=== PATIENT | female | born 1980 | race Caucasian/White ===

== ENCOUNTER 2022-06-21 13:28 | Observation (INO) | payer OTHER, SELFPAY ==
[2022-06-21] VITALS (29 sets, daily range): BP systolic 115–149; BP diastolic 67–89; PULSE 73–112; RESP 11–20; TEMP 36.3–37.4; O2SAT 98–100
--- NOTE | ~2022-06-21 | XR_ITS ---
XR chest 2V DATE: 06/21/2022 14:58 INDICATION: Chest pain TECHNIQUE: PA and lateral views COMPARISON: None FINDINGS: Normal heart size. No hilar or mediastinal enlargement. No pulmonary infiltrate or consolid ation, pleural effusion or pulmonary vascular congestion or pneumothorax. Included skeletal structure s are unremarkable. IMPRESSION: No active cardiopulmonary disease Reviewed, dictated and finalized at location B.
--- NOTE | 2022-06-21 13:30 | ECG_ITS ---
Measurements Intervals [place] Rate: 88 P: 51 WI: 130 QRS: 59 QRSD: 84 T: 35 QT: 353 QTc: 427 Interpretive Statements SINUS RHYTHM BORDERLINE ST ABNORMALITY- ANTEROLAT/INF LEADS BORDERLINE ECG NO PREVIOUS ECG AVAILABLE FOR COMPARISON Electronically Signed On 06-21-2022 14:04:47 CDT by Abraham Hart D.O.
[2022-06-21 13:55] LABS: Basophils Absolute Auto 0.1 K/mm3 (0.0-0.1); Basophils Percent Auto 1.7 % (0.2-1.2); Eosinophils Absolute Auto 0.1 K/mm3 (0-0.3); Eosinophils Percent Auto 2.4 % (0-4.4); Hematocrit 25.1 % (37.0-47.0); Immature Granulocyte Absolute 0.01 K/mm3 (0.00-0.031); Immature Granulocyte Percent A 0.2 % (0-0.5); Lymphocytes Absolute Auto 1.97 K/mm3 (0.9-3.2); Lymphocytes Percent Auto 34.3 % (18.3-44.2); Mean Corpuscular HGB Conc 26.7 g/dl (32-36); Mean Corpuscular Hemoglobin 17.3 pg (26-34); Mean Corpuscular Volume 64.7 fl (80-100); Mean Platelet Volume 9.8 fl (7.4-10.4); Monocytes Absolute Auto 0.6 K/mm3 (0.1-0.6); Monocytes Percent Auto 11.1 % (2.6-8.5); Neutrophils Absolute Auto 2.9 K/mm3 (1.3-6.7); Neutrophils Percent Auto 50.3 % (45.5-73.1); Platelet Count Result 461 k/mm3 (150-375); Red Blood Count 3.88 M/mm3 (4.2-5.4); Red Cell Distribution Width 20.9 % (11.5-14.5); White Blood Count 5.8 K/mm3 (4.5-10.0)
[2022-06-21 14:07] LABS: Alanine Aminotransferase 36 U/L (6-35); Albumin Level 4.5 g/dL (3.5-5.1); Alkaline Phosphatase 84 U/L (38-126); Anion Gap 12 mmol/L (8-16); Aspartate Amino Transferase 35 U/L (14-36); Bilirubin,Total 0.4 mg/dL (0.2-1.3); Blood Urea Nitrogen 8 mg/dL (7-17); Calcium 8.7 mg/dL (8.4-10.2); Carbon Dioxide 20 mmol/L (22-30); Chloride 102 mmol/L (98-107); Estimated CRCL calculation 126 ml/min; Estimated Glomerular Filt Rate > 60; Glucose 107 mg/dL (65-110); Lipase 137 U/L (23-300); Potassium 3.8 mmol/L (3.4-5.0); Sodium 134 mmol/L (137-145)
[2022-06-21 14:10] LABS: INR 1.1; Prothrombin Time 13.8 Seconds (11.1-14.7)
[2022-06-21 14:11] LABS: Partial Thromboplastin Time 26.3 SECONDS (22.3-36.8)
[2022-06-21 14:18] LABS: Troponin I < 0.012 ng/mL (0.000-0.034)
[2022-06-21 14:24] LABS: Hemoglobin 6.7 g/dL (12.0-15.0)
[2022-06-21 14:25] LABS: Platelet Estimate Increased (Adequate); Schistocytes None Seen (NORMAL)
[2022-06-21 14:26] LABS: Anisocytosis 3+ (NORMAL); Hypochromasia 1+ (NORMAL)
--- NOTE | 2022-06-21 14:42 | ED.GENADULT ---
HPI - General Adult General Chief complaint: Chest Pain Stated complaint: chest pain Time Seen by Provider: 06/21/22 14:27 History of Present Illness HPI narrative: 42-year-old female with history of heavy periods and intermittent chest pain presenting to the emergency department for evaluation of the chest pain. 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 Patient states he does have fairly heavy periods and just completed her menstrual cycle. Patient denies any current vaginal bleeding. Patient denies any history of GI bleed. Patient states she does have history anemia and has previously taken iron pills but has not been taking her iron supplement. Related Data Home Medications Medication Instructions Recorded Confirmed No Home Medications 06/21/22 06/21/22 Allergies Allergy/AdvReac Type Severity Reaction Status Date / Time No Known Allergies Allergy Mild Verified 06/21/22 14:21 Review of Systems Review of Systems: All systems reviewed & are unremarkable except as noted in HPI and below PMFSH Social History Social History Smoking packs per day: 0.5 Smoking cigarettes per day: 10.0 Years smoked: 4 Smoking pack-years: 2.00 Smoking status: Former smoker Tobacco type: cigarettes Second hand tobacco smoke exposure: Yes Additional smoking assessment comments: quit in 2016 Alcohol intake: never Substance use: never Lack of Transportation: No Lack of Food: Never True Current Housing: I Have Housing Concerned About Future Housing: No Difficulty Paying Gas/Electric Bills: No Difficulty Paying for Meds: No Currently Unemployed: No Education: High School Diploma/GED Difficulty w/ Childcare or Family Care: No Spiritual care concerns: No Exam Narrative: APPEARANCE: Well appearing, no pain, no distress, well-nourished. HEAD: normocephalic, atraumatic. EYES: PERRLA/EOMI, conjunctivae clear. NOSE: Normal no drainage NECK: Supple. No adenopathy, no masses. RESPIRATORY: Airway patent, respirations nonlabored. Clear to auscultation bilaterally, no rales, rhonchi, wheezing. CARDIOVASCULAR: Regular rate and rhythm without murmurs rubs or gallops. ABDOMINAL: Soft, nontender, nondistended, normal bowel sounds Rectal: No melena on exam. No bright red blood on digital rectal exam and patient was Hemoccult negative MUSCULOSKELETAL: Moves all extremities. Strength/ROM intact, No edema, No calf tenderness. NEURO: Alert. Cranial nerves II through XII intact. Grossly intact SKIN: Warm, dry. Normal Color Course Course Emergency Course: 42-year-old female with history of anemia and intermittent chest pain. Differential diagnosis does include ACS, pneumothorax, pneumonia, GI bleed, anemia secondary to vaginal bleeding. Patient was Hemoccult negative on the digital rectal exam. Patient is being treated with 2 units of packed red blood. Suspected etiology of the patient's symptoms anemia secondary to heavy menstrual cycle and noncompliance with iron supplements. Patient was updated on the results of her work-up and plan for admission. Case was discussed with the hospitalist and patient was accepted for admission. Patient was well-appearing at time of admission. X-ray showed no acute cardiopulmonary normality. EKG showed normal sinus rhythm with nonspecific ST changes. Vital Signs Vital signs: Vital Signs Temperature 98.5 F 06/21/22 13:38 Pulse Rate 88 06/21/22 13:38 Respiratory Rate 16 06/21/22 13:38 Blood Pressure 149/78 H 06/21/22 13:38 Pulse Oximetry 100 06/21/22 13:38 Oxygen Delivery Room Air 06/21/22 13:38 Temperature 97.6 F 06/21/22 19:55 Pulse Rate 98 06/21/22 19:55 Respiratory Rate 18 06/21/22 19:55 Blood Pressure 129/69 06/21/22 19:55 Pulse Oximetry 99 06/21/22 19:55 Oxygen Delivery R
[2022-06-21] MEDS: SODIUM CHLORIDE 0.9% IV 250 ML 30 ML IV CONT (16:26)
--- NOTE | 2022-06-21 17:00 | PM.IMHP ---
H&P: HPI History of Present Illness Date/Time: 06/21/22 17:00 Chief Complaint: Chest pain and rapid heart rate. Narrative: This is a pleasant 42-year-old female with history of iron deficiency anemia for which she is intermittently on supplementation who presented to the emergency department via private vehicle from home for evaluation of chest pain rapid heart rate. Patient provides the following history. Over last 6 months or so she has noticed that her exercise tolerance has decreased, she is easily fatigued, short of breath with day-to-day activities, and more recently she has started to have some lightheadedness and dizziness. For the past week or so she has been experiencing a discomfort in the left anterior chest, below the left breast, which she has difficult time describing. It lasts anywhere from seconds to 20 minutes and it is self-limiting. She occasionally has rapid heart rate at that time as well which she has documented on her Apple watch. These episodes tend to occur at nighttime and wake her from sleep on occasion. She call to establish care with a primary physician but does not have an appointment for several weeks and she decided to come in today for evaluation. Vital signs were stable on arrival. Labs were significant for a hemoglobin of 6.7, hematocrit 25.1%, MCV 64.7, platelet 461. Her stool was Hemoccult negative on rectal exam done in the ED. She admits to having heavy periods though that is usually only half a day and up to 2 days of her cycle. She typically did bleeds up to 6 days and has pretty consistent cycles. On heavier days she will go through an ultra tampon and pad every couple of hours and she does pass clots during those times. As she has gotten older she has had increasing discomfort with her menstrual cycles. She has not seen a electrician office for quite some time. She denies epistaxis, gingival bleeding, easy bruising, hematemesis, hemoptysis, hematuria, hematochezia, and melena. She denies epigastric and abdominal pain, bloating, and belching. She is being admitted in this setting for blood transfusion and close monitoring given reports of left-sided chest pain. Review of Systems Review of Systems: Twelve systems were reviewed and are negative except for as per HPI. [facility] Past Medical History Medical History (Updated 06/21/22 @ 23:26 by Jazmin Goss PA-C) Iron deficiency anemia Surgical History Surgical History (Updated 06/21/22 @ 23:24 by Jazmin Goss PA-C) History of tubal ligation Social History Social History (Updated 06/21/22 @ 23:25 by Jazmin Goss PA-C) Social History: Surrogate medical decision maker: Jose Borrego, significant other. Code status: Full code. Smoking packs per day: 0.5 Smoking cigarettes per day: 10.0 Years smoked: 4 Smoking pack-years: 2.00 Smoking status: Former smoker Tobacco type: cigarettes Second hand tobacco smoke exposure: Yes Additional smoking assessment comments: quit in 2016 Alcohol intake: never Substance use: never Lack of Transportation: No Lack of Food: Never True Current Housing: I Have Housing Concerned About Future Housing: No Difficulty Paying Gas/Electric Bills: No Difficulty Paying for Meds: No Currently Unemployed: No Education: High School Diploma/GED Difficulty w/ Childcare or Family Care: No Additional living arrangements comments: Lives in [place]. Has 4 children. 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 Spiritual care concerns: No Meds Home Medications and Allergies Home Medications Medication Instructions Recorded Confirmed Type No Home Medications 06/21/22 06/21/22 History Allergies Allergy/AdvReac Type Severity Reaction Status Date / Time No Known Allergies Allergy Mild Verified 06/21/22 14:21 Vital Signs Vital Signs - 24 hr 06/21/22 13:38 06/21/22 14:21 06/21/22 14:36 Temperature 98.5 F Pulse Rate 88 97 112 H Respi
[2022-06-21 17:19] LABS: Troponin I < 0.012 ng/mL (0.000-0.034)
[2022-06-21] MEDS: TUBING, BLOOD SET 1 EACH XX (17:40)
[2022-06-21 17:59] LABS: Immature Reticulocyte Fraction 24.1 % (3.0-15.9); Reticulocyte Hemoglobin Conten 17.2 pg (28.2-35.7); Reticulocyte Percent 1.56 % (0.7-4.3); Reticulocytes Absolute 0.06 B/L (32.2-175.7)
[2022-06-21 18:04] LABS: Transferrin 376 mg/dL (206-381)
[2022-06-21 18:27] LABS: Iron 12 ug/dL (37-170)
[2022-06-21 18:37] LABS: Percent Iron Saturation 2 % (20-50)
--- NOTE | 2022-06-21 18:41 | ADMGEN ---
This patient, Ariana Ku, was admitted to IMU Room 209-. Patient/family oriented to hospital policies and general routines including ID bracelet, bed and alarms, visiting hours, pain management, procedures, bathroom and other care routines, personal items, smoking policy, room service/diet, and visiting hours. Information on how to activate the Rapid Response Team has been discussed. Patient/Family are encouraged to report perceived risks to care and to ask questions if they do not understand what they are told or what they should do.
[2022-06-21 18:59] LABS: Thyroid Stimulating Hormone Reflex 0.883 uIU/mL (0.465-4.68)
[2022-06-21 19:04] LABS: Ferritin 3.62 ng/mL (6.24-137)
[2022-06-21 19:05] LABS: Folic Acid 14.5 ng/mL (2.76->20)
[2022-06-21 20:17] LABS: Troponin I < 0.012 ng/mL (0.000-0.034)
[2022-06-21 21:58] LABS: Hematocrit 29.5 % (37.0-47.0); Hemoglobin 8.9 g/dL (12.0-15.0)
[2022-06-22] VITALS (15 sets, daily range): BP systolic 100–136; BP diastolic 58–85; PULSE 63–98; RESP 16–20; TEMP 36.5–37.3; O2SAT 98–100
[2022-06-22 04:23] LABS: Hematocrit 31.8 % (37.0-47.0); Hemoglobin 9.3 g/dL (12.0-15.0); Mean Corpuscular HGB Conc 29.2 g/dl (32-36); Mean Corpuscular Hemoglobin 20.4 pg (26-34); Mean Corpuscular Volume 69.6 fl (80-100); Mean Platelet Volume 9.9 fl (7.4-10.4); Platelet Count Result 419 k/mm3 (150-375); Red Blood Count 4.57 M/mm3 (4.2-5.4); Red Cell Distribution Width 24.5 % (11.5-14.5); White Blood Count 6.2 K/mm3 (4.5-10.0)
[2022-06-22 04:39] LABS: Anion Gap 8 mmol/L (8-16); Blood Urea Nitrogen 10 mg/dL (7-17); Calcium 8.5 mg/dL (8.4-10.2); Carbon Dioxide 24 mmol/L (22-30); Chloride 105 mmol/L (98-107); Estimated CRCL calculation 107 ml/min; Estimated Glomerular Filt Rate > 60; Glucose 92 mg/dL (65-110); Sodium 137 mmol/L (137-145)
--- NOTE | 2022-06-22 08:00 | ECHO_ITS ---
Patient Info Name: Ariana Ku Age: 42 years : 1980 Gender: Female Ht: 65 in Wt: 178 lbs BSA: 1.95 m2 HR: 86 bpm BP: 100 / 58 mmHg Technical Quality: Good Exam Date: 06/22/2022 8:29 AM Exam Location: [facility] Patient Status: Inpatient Admit Date: 06/21/2022 Staff Ordering Physician: Jazmin Goss PA-C Transplanter: Silvano Patrick RDCS, RT Attending Provider: Ting Avery MD Referring Physician: Ana Paula GUAJARDO; Exam Type: CA echo doppler color flow Study Info Indications - Anemia R07.9 - Chest pain, unspecified Complete two-dimensional, color flow and Doppler transthoracic echocardiogram is performed. Strain analysis performed. Summary 1. Complete two-dimensional, color flow and Doppler transthoracic echocardiogram is performed. 2. Left ventricular chamber dimension is normal. 3. Left ventricular systolic function is normal, estimated at 55-60%. 4. The left ventricular diastolic function is normal. 5. E/e' 5 is not elevated. 6. Global longitudinal strain is mildly abnormal at -16.6%. 7. There is trace tricuspid valve regurgitation. Left Ventricle E/e' 5 is not elevated. Global longitudinal strain is mildly abnormal at -16.6%. Left ventricular chamber dimension is normal. Left ventricular systolic function is normal, estimated at 55-60%. The left ventricular diastolic function is normal. Right Ventricle Right ventricular systolic function is normal and with normal TAPSE 2.2 cmc. Right ventricular chamber dimension is normal. Left Atria Left atrial chamber dimension is normal. Right Atria Right atrial chamber dimension is normal. Aortic Valve The aortic valve is trileaflet. There is no aortic valve stenosis. There is no aortic valve regurgitation. Pulmonic Valve There is no pulmonic regurgitation. Mitral Valve There is no mitral valve stenosis. There is no mitral valve regurgitation. Tricuspid Valve There is trace tricuspid valve regurgitation. RVSP is not calculated due to an inadequate TR jet. Pericardium/Pleural There is no pericardial effusion. Inferior Vena Cava Normal inferior vena cava with >50% collapse upon inspiration consistent with normal right atrial pressure, 5 mmHg. Aorta The aortic root size at the sinus of Valsalva is normal. Left Ventricular Outflow Tract Name Value Normal LVOT 2D LVOT Diameter 1.9 cm LVOT Doppler LVOT Peak Gradient 4 mmHg LVOT Mean Gradient 2 mmHg LVOT VTI 19 cm LVOT VTI/AV VTI Ratio 0.6 LVOT Stroke Volume 55 ml LVOT CO 5.0 l/min LVOT CI 2.6 l/min/m2 Mitral Valve Name Value Normal MV Doppler MV Decel [place]
[2022-06-22] MEDS: IRON SUCROSE COMPLEX 200 MG in SODIUM CHLORIDE 0.9% IV 50 ML 120 MG IVPB (11:14)
[2022-06-22] MEDS: CYANOCOBALAMIN INJ 1,000 MCG/ML VIAL 1000 MCG IM (11:50)
[2022-06-22] MEDS: CALCIUM CARBONATE (TUMS) 500 MG (200 MG ELEMENTAL) PO (15:49)
--- NOTE | 2022-06-22 16:19 | PM.IMPN ---
Progress Note: A&P Assessment and Plan (1) Microcytic anemia: Code(s): D50.9 - Iron deficiency anemia, unspecified Status: Acute (2) Atypical chest pain: Code(s): R07.89 - Other chest pain Status: Acute Plan The patient presented to the emergency department for evaluation of left-sided chest pain as detailed in HPI. Labs, imaging, EKG, and all reports were personally reviewed. Chest pain is atypical for cardiac pain. It is not reproducible on examination thus musculoskeletal seems less likely. The discomfort does occur at times when her heart rate is elevated and she has some nonspecific ST changes on her EKG thus will monitor on telemetry and check an echocardiogram. GI etiology seems less likely as well. More over she has profound microcytic anemia and I am wondering if perhaps she has some demand ischemia. She gives a longstanding history of iron deficiency anemia dating back 16 years or more for which she intermittently takes iron depending on how she feels. Iron studies, B12, and folate are currently pending. She is being transfused to a more stable hemoglobin. I expect she will be profoundly iron deficient and iron infusions may be appropriate. Vital signs have been stable. Her home medications will be reviewed and resumed as appropriate. 06/22/2022 interval history: 42-year-old female presented with anemia with complaint of chest pain and palpitation, upon arrival patient hemoglobin was 6.7 and patient was given 2 units of pack RBC, suspect patient with history heavy menses may have dysfunctional uterine bleeding and will consult steward/stewardess tourist class further recommendation, patient also had iron deficiency anemia will start the patient on Venofer as well as deficiency of vitamin B12 and patient is given 1000 mcg subQ, patient 3 sets of cardiac enzymes are negative most likely patient does not acute coronary syndrome most likely chest pain and palpitation secondary to anemia, patient has a tubal ligation, patient may benefit from hysterectomy patient be seen by steward/stewardess tourist class and further recommendation to follow. Subjective Date/time seen: 06/22/22 16:19 Chest pain and rapid heart rate. HPI-Narrative: This is a pleasant 42-year-old female with history of iron deficiency anemia for which she is intermittently on supplementation who presented to the emergency department via private vehicle from home for evaluation of chest pain rapid heart rate. Patient provides the following history. Over last 6 months or so she has noticed that her exercise tolerance has decreased, she is easily fatigued, short of breath with day-to-day activities, and more recently she has started to have some lightheadedness and dizziness. For the past week or so she has been experiencing a discomfort in the left anterior chest, below the left breast, which she has difficult time describing. It lasts anywhere from seconds to 20 minutes and it is self-limiting. She occasionally has rapid heart rate at that time as well which she has documented on her Apple watch. These episodes tend to occur at nighttime and wake her from sleep on occasion. She call to establish care with a primary physician but does not have an appointment for several weeks and she decided to come in today for evaluation. Vital signs were stable on arrival. Labs were significant for a hemoglobin of 6.7, hematocrit 25.1%, MCV 64.7, platelet 461. Her stool was Hemoccult negative on rectal exam done in the ED. She admits to having heavy periods though that is usually only half a day and up to 2 days of her cycle. She typically did bleeds up to 6 days and has pretty consistent cycles. On heavier days she will go through an ultra tampon and pad every couple of hours and she does pass clots during those times. As she has gotten older she has had increasing discomfort with her menstrual cycles. She has not seen a steward/stewardess tourist class for quite some time. She denies epistaxis, gingival bleeding, easy bruising, hematemesis, hemopt
[2022-06-23] VITALS (8 sets, daily range): BP systolic 110–115; BP diastolic 62–72; PULSE 68–88; RESP 16; TEMP 36.3–36.8; O2SAT 97–99
[2022-06-23 04:49] LABS: Hemoglobin 9.6 g/dL (12.0-15.0); Mean Corpuscular HGB Conc 29.1 g/dl (32-36); Mean Corpuscular Hemoglobin 20.3 pg (26-34); Mean Corpuscular Volume 69.9 fl (80-100); Mean Platelet Volume 10.2 fl (7.4-10.4); Platelet Count Result 446 k/mm3 (150-375); Red Blood Count 4.72 M/mm3 (4.2-5.4); Red Cell Distribution Width 25.2 % (11.5-14.5); White Blood Count 6.2 K/mm3 (4.5-10.0)
[2022-06-23 05:10] LABS: Anion Gap 7 mmol/L (8-16); Blood Urea Nitrogen 13 mg/dL (7-17); Calcium 8.7 mg/dL (8.4-10.2); Carbon Dioxide 25 mmol/L (22-30); Chloride 106 mmol/L (98-107); Estimated CRCL calculation 107 ml/min; Estimated Glomerular Filt Rate > 60; Glucose 92 mg/dL (65-110); Magnesium 2.2 mg/dL (1.6-2.3); Sodium 138 mmol/L (137-145)
--- NOTE | 2022-06-23 08:00 | WPDCN ---
Assessment and Plan Assessment and plan (1) Menorrhagia: Code(s): N92.0 - Excessive and frequent menstruation with regular cycle Status: Acute Assessment and Plan: The patient is given a prescription for Lysteda to take at the onset of her cycle 2 tablets 3 times daily. It was discussed with the patient that she will need a hysteroscopy D&C to workup the abnormal bleeding. Patient is to call the office as soon as possible to set her appointment. (2) Profound anemia: Code(s): D64.9 - Anemia, unspecified Status: Acute Assessment and Plan: Patient status post packed red blood cells and iron infusion is to be given today. From my standpoint she was stable for discharge and the problems will be worked up as an outpatient. HPI Data of Consult Date/Time: 06/23/22 08:00 Requesting Physician: Ting Avery MD Primary Care Provider: MUTUEL TELLER PHYSICIAN Consult Narrative Reason for consult: Menorrhagia with anemia Narrative: Ariana Ku is a 42 year old female 4 para 4 with a 6 month history of worsening cycles. Patient states her cycles are monthly but have been irregular in flow. Some months have been light. Some months have been quite heavy with large clots. She has no other symptoms of menopause. She has not seen a data communications analyst in over 10 years. [facility] Past Medical History Medical History (Updated 06/23/22 @ 08:02 by Charlene Benson MD) Iron deficiency anemia (normal spontaneous vaginal delivery) x4 Skin tumor history of excision age 4 benign Surgical History Surgical History (Updated 06/21/22 @ 23:24 by Jazmin Goss PA-C) History of tubal ligation Social History Social History (Updated 06/21/22 @ 23:25 by Jazmin Goss PA-C) Social History: Surrogate medical decision maker: Jose Borrego, significant other. Code status: Full code. Smoking packs per day: 0.5 Smoking cigarettes per day: 10.0 Years smoked: 4 Smoking pack-years: 2.00 Smoking status: Former smoker Tobacco type: cigarettes Second hand tobacco smoke exposure: Yes Additional smoking assessment comments: quit in 2016 Alcohol intake: never Substance use: never Lack of Transportation: No Lack of Food: Never True Current Housing: I Have Housing Concerned About Future Housing: No Difficulty Paying Gas/Electric Bills: No Difficulty Paying for Meds: No Currently Unemployed: No Education: High School Diploma/GED Difficulty w/ Childcare or Family Care: No Additional living arrangements comments: Lives in [place]. Has 4 children. 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 Spiritual care concerns: No Meds Home Medications and Allergies Home Medications Medication Instructions Recorded Confirmed Type tranexamic acid 650 mg tablet 1,300 mg PO TID #30 tabs 06/23/22 Rx (Lysteda) Allergies Allergy/AdvReac Type Severity Reaction Status Date / Time No Known Allergies Allergy Mild Verified 06/21/22 14:21 Vital Signs Vital Signs - 24 hr 06/22/22 08:05 06/22/22 08:05 06/22/22 10:00 Temperature Pulse Rate 82 Respiratory Rate Blood Pressure 132/79 122/75 Pulse Oximetry Oxygen Delivery 06/22/22 11:57 06/22/22 12:00 06/22/22 12:00 Temperature 98.3 F Pulse Rate 74 71 Respiratory Rate 16 Blood Pressure 136/76 Pulse Oximetry 98 Oxygen Delivery Room Air 06/22/22 14:00 06/22/22 15:59 06/22/22 16:00 Temperature 99.1 F Pulse Rate 71 79 Respiratory Rate 20 Blood Pressure 111/64 Pulse Oximetry 99 Oxygen Delivery Room Air 06/22/22 16:00 06/22/22 18:00 06/22/22 20:00 Temperature 97.7 F Pulse Rate 76 98 69 Respiratory Rate 16 Blood Pressure 131/85 Pulse Oximetry 100 Oxygen Delivery 06/22/22 20:00 06/22/22 20:00 06/22/22 20:00 Temperature Pulse Rate Respiratory Rate Blood Pressure 131/85 120/78 116/65 Puls
--- NOTE | 2022-06-23 10:39 | PM.DS ---
DS: Admitting Diagnosis Discharge Date 06/24/2023 Admitting Diagnosis Chest pain and rapid heart rate. DS: Discharge Diagnosis Discharge Diagnosis (1) Microcytic anemia: Code(s): D50.9 - Iron deficiency anemia, unspecified Status: Acute (2) Atypical chest pain: Code(s): R07.89 - Other chest pain Status: Acute Plan The patient presented to the emergency department for evaluation of left-sided chest pain as detailed in HPI. Labs, imaging, EKG, and all reports were personally reviewed. Chest pain is atypical for cardiac pain. It is not reproducible on examination thus musculoskeletal seems less likely. The discomfort does occur at times when her heart rate is elevated and she has some nonspecific ST changes on her EKG thus will monitor on telemetry and check an echocardiogram. GI etiology seems less likely as well. More over she has profound microcytic anemia and I am wondering if perhaps she has some demand ischemia. She gives a longstanding history of iron deficiency anemia dating back 16 years or more for which she intermittently takes iron depending on how she feels. Iron studies, B12, and folate are currently pending. She is being transfused to a more stable hemoglobin. I expect she will be profoundly iron deficient and iron infusions may be appropriate. Vital signs have been stable. Her home medications will be reviewed and resumed as appropriate. 06/22/2022 interval history: 42-year-old female presented with anemia with complaint of chest pain and palpitation, upon arrival patient hemoglobin was 6.7 and patient was given 2 units of pack RBC, suspect patient with history heavy menses may have dysfunctional uterine bleeding and will consult anodizer further recommendation, patient also had iron deficiency anemia will start the patient on Venofer as well as deficiency of vitamin B12 and patient is given 1000 mcg subQ, patient 3 sets of cardiac enzymes are negative most likely patient does not acute coronary syndrome most likely chest pain and palpitation secondary to anemia, patient has a tubal ligation, patient may benefit from hysterectomy patient be seen by anodizer and further recommendation to follow. DS: Summary Hospital Course Reason for hospitalization: Chest pain and rapid heart rate. Narrative: This is a pleasant 42-year-old female with history of iron deficiency anemia for which she is intermittently on supplementation who presented to the emergency department via private vehicle from home for evaluation of chest pain rapid heart rate. Patient provides the following history. Over last 6 months or so she has noticed that her exercise tolerance has decreased, she is easily fatigued, short of breath with day-to-day activities, and more recently she has started to have some lightheadedness and dizziness. For the past week or so she has been experiencing a discomfort in the left anterior chest, below the left breast, which she has difficult time describing. It lasts anywhere from seconds to 20 minutes and it is self-limiting. She occasionally has rapid heart rate at that time as well which she has documented on her Apple watch. These episodes tend to occur at nighttime and wake her from sleep on occasion. She call to establish care with a primary physician but does not have an appointment for several weeks and she decided to come in today for evaluation. Vital signs were stable on arrival. Labs were significant for a hemoglobin of 6.7, hematocrit 25.1%, MCV 64.7, platelet 461. Her stool was Hemoccult negative on rectal exam done in the ED. She admits to having heavy periods though that is usually only half a day and up to 2 days of her cycle. She typically did bleeds up to 6 days and has pretty consistent cycles. On heavier days she will go through an ultra tampon and pad every couple of hours and she does pass clots during those times. As she has gotten older she has had increasing discomfort with her menstrual cycles. She h
== END 2022-06-23 12:00 | disposition home or self-care (01) ==
LOC: ANHED 16:13 → ANHIMU 17:52
PROVIDERS: Emergency Medicine; Physician Assistant; Admitting Provider Family Medicine; Emergency Provider Emergency Medicine; Visit Provider Family Medicine
DX: D50.9 Iron deficiency anemia, unspecified (principal); R07.89 Other chest pain; R00.0 Tachycardia, unspecified; N92.0 Excessive and frequent menstruation with regular cycle; Z87.891 Personal history of nicotine dependence
CPT/HCPCS: 36415; 36430; 71046; 80048; 80053; 81025; 82607; 82728; 82746; 83540; 83550; 83690; 83735; 84443; 84466; 84484; 85014; 85018; 85025; 85027; 85046; 85610; 85730; 86850; 86900; 86901; 86920; 93005; 93306; 96372; 96374; 99285; A9270; G0378; J1756; J3420; J7050; P9016

== ENCOUNTER 2022-06-25 12:30 | Emergency (ER) | payer OTHER, SELFPAY ==
--- NOTE | ~2022-06-25 | US_ITS ---
EXAMINATION: US venous doppler UE RT DATE: 06/25/2022 13:09 INDICATION: Right upper limb pain and swelling. TECHNIQUE: Grayscale ultrasound images without and with compression and Doppler ultrasound images of the right upper extremity veins were obtained. COMPARISON: None. FINDINGS: The visualized portions of the right internal jugular vein, subclavian vein, axillary vein, brachial veins, basilic vein, radial vein, and ulnar vein are patent. There is thrombus in the right cephalic vein. IMPRESSION: 1. No deep venous thrombosis. 2. Superficial vein thrombosis involving the right cephalic vein. Reviewed, dictated and finalized at location A.
--- NOTE | 2022-06-25 12:46 | PC.NURSE ---
Pt to U/S via w/c from waiting room at this time.
[2022-06-25 13:11] VITALS: BP 127/62; PULSE 93; RESP 18; TEMP 36.8; O2SAT 100
--- NOTE | 2022-06-25 16:32 | ED.GENADULT ---
HPI - General Adult General Chief complaint: Wound/Laceration Stated complaint: wound Time Seen by Provider: 06/25/22 15:59 Source: patient Mode of arrival: ambulatory Limitations: no limitations History of Present Illness HPI narrative: 42-year-old with a history of iron deficiency anemia, here with complaints of right antecubital fossa pain and redness for past 2 days , patient states that she received iron transfusion and blood transfusion while she was here in the hospital. She is worried about blood clot. She denies any fever Related Data Allergies Allergy/AdvReac Type Severity Reaction Status Date / Time No Known Allergies Allergy Mild Verified 06/21/22 14:21 Review of Systems Review of Systems: All systems reviewed & are unremarkable except as noted in HPI and below Constitutional: Constitutional: Reports no additional constitutional complaints Eyes: Eyes: Reports no additional eye complaints ENT: Reports system reviewed and no additional complaints, except as documented Cardiovascular: Cardiovascular: Reports no additional cardiovascular complaints Respiratory: Respiratory: Reports no additional respiratory complaints Gastrointestinal: Gastrointestinal: Reports no additional gastrointestinal complaints Musculoskeletal: Musculoskeletal: Reports no additional musculoskeletal complaints Integumentary/Breasts: Skin/Breast: Reports as per HPI Neurologic: Reports system reviewed and no additional complaints, except as documented PMFSH Past Medical History Medical History Iron deficiency anemia (normal spontaneous vaginal delivery) x4 Skin tumor history of excision age 4 benign Surgical History Surgical History History of tubal ligation Social History Social History Social History: Surrogate medical decision maker: Jose Borrego, significant other. Code status: Full code. Smoking packs per day: 0.5 Smoking cigarettes per day: 10.0 Years smoked: 4 Smoking pack-years: 2.00 Smoking status: Former smoker Tobacco type: cigarettes Second hand tobacco smoke exposure: Yes Additional smoking assessment comments: quit in 2016 Alcohol intake: never Substance use: never Lack of Transportation: No Lack of Food: Never True Current Housing: I Have Housing Concerned About Future Housing: No Difficulty Paying Gas/Electric Bills: No Difficulty Paying for Meds: No Currently Unemployed: No Education: High School Diploma/GED Difficulty w/ Childcare or Family Care: No Additional living arrangements comments: Lives in [place]. Has 4 children. 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 Spiritual care concerns: No Exam Narrative: GENERAL: Well-appearing, well-nourished, and in no acute distress. HEAD: Normocephalic, atraumatic. EYES: PERRLA and EOMI.. NECK: Supple. CHEST: Clear to auscultation. No respiratory distress. HEART: Regular rate and rhythm. No murmur heard. Normal peripheral pulses.. EXTREMITIES: Painful ROM of the right elbow side. Patient you have some his family physician tender on palpation in antecubital area marked erythema and mild warmth on palpation SKIN: Warm, dry, no rash. NEURO: No focal deficits. Alert and oriented x3. PSYCH: Normal mood and affect. Course Course Emergency Course: Patient had a ultrasound of the right upper extremity which did not reveal any DVT showed evidence of superficial thrombophlebitis. Inform the patient and her about her ultrasound findings advised to take antibiotic as prescribed and warm compress Vital Signs Vital signs: Vital Signs Temperature 36.8 C 06/25/22 13:11 Pulse Rate 93 06/25/22 13:11 Respiratory Rate 18 06/25/22 13:11 Blood Pressure 127/62 06/25/22 13:11 Pulse Oximetry 100 06/25/22 13:11
[2022-06-25 16:58] VITALS: BP 138/86; PULSE 82; RESP 16; O2SAT 97
== END 2022-06-25 17:00 | disposition home or self-care (01) ==
PROVIDERS: Emergency Provider Family Medicine
DX: T80.1XXA Vascular complications following infusion, transfusion and therapeutic injection, initial encounter (principal); I80.8 Phlebitis and thrombophlebitis of other sites; Z87.891 Personal history of nicotine dependence
CPT/HCPCS: 93971; 99284

== ENCOUNTER → 2022-12-22 15:38 | Outpatient (CLI) | payer OTHER, SELFPAY ==
--- NOTE | ~2022-12-22 | US_ITS ---
EXAMINATION: US pelvic complete DATE: 12/22/2022 15:54 INDICATION: Menorrhagia Comparison:No prior studies for comparison. TECHNIQUE: Multiple transabdominal sonographic images of the pelvis performed. FINDINGS: The uterus measures 14.8 x 6.7 x 8.2 cm. The endometrial complex measures 8 mm. The right ovary measures 2.7 x 1.7 x 1.8 cm and the left ovary measures 2.6 x 2.5 x 2 cm. There are small follicles in each ovary. Normal doppler signal in both ovaries. There is no free fluid in the pelvis. There are no abnormal masses seen on either side. IMPRESSION: 1. Enlarged uterus. Reviewed, dictated and finalized at location B. IMPRESSION: 1. Enlarged uterus.
== END ==
PROVIDERS: PCP Obstetrics & Gynecology Gynecology; Visit Provider Advanced Practice Midwife
DX: N92.0 Excessive and frequent menstruation with regular cycle (principal); N85.2 Hypertrophy of uterus
CPT/HCPCS: 76856

== ENCOUNTER 2023-01-22 01:00 | Day surgery (SDC) | payer OTHER, SELFPAY ==
[2023-01-10 14:55] VITALS: BMI 30.9
--- NOTE | 2023-01-10 15:00 | PC.NURSE ---
Report to the Outpatient Waiting Room, entrance under the green pavilion located off [facility], at time 1200 on date 01/22/23. Planned Procedure Time: 1400. Time changes happen often and if your time is changed the preop area will call you the afternoon before. - You and your visitor will be asked to self-screen and do not enter if you have any COVID symptoms. - A mask is optional within the hospital at this time. Patients may have clear liquids (water, carbonated beverages, clear teas, apple juice) until 3 hours prior to surgery with a maximum of 20 ounces. - No food from midnight until time of surgery Take the following medications with a SIP of water the morning of surgery: NONE DO NOT STOP ANY OF YOUR OTHER PRESCRIPTION MEDICATIONS PRIOR TO SURGERY ?EXCEPT THE FOLLOWING Medications to discontinue per physician: VITAMINS Date to take last dose: 01/18/23 Please no make-up, nail serbian, hairspray, perfume, deodorant, or body powder the day of surgery. No jewelry (including any body piercings) or valuables the day of surgery, leave them at home. Please take a shower or bath the night before, or the morning of, surgery with an antibacterial soap. Wear comfortable, loose fitting clothing. - Jewelry must be removed prior to entering the operating room. Rings and piercings that are not removed may be cut off. - The hospital will not accept responsibility for valuables. - Please leave all valuables, including medications, at home the day of surgery. If you are going home after surgery, a licensed livery car driver must drive you home. - NO public transportation without another adult if you receive anesthesia. - We recommend that an adult stay with you for 24 hours following discharge. - We also recommend that you do not drive, make important decision, drink alcoholic beverages, or take any drugs that were not prescribed by your health care provider for at least 24 hours after your discharge time. Follow any additional instructions given to you from your surgeon. If you or anyone in your household have experienced Covid symptoms in the past week, please notify your surgeon or the nurse liaison at the phone number below for possible testing. Telephone instructions given to PT - MARK ROBLES and asked if any additional questions and then verbalized understanding. Patient advised to call surgeon office or pre surgery nurse liaison [phone] if any additional questions.
--- NOTE | 2023-01-22 07:36 | WPDHPUPDATE1 ---
History and Physical Update Update Date/Time: 01/22/23 07:36 History and Physical has been reviewed, including an updated exam of the patient. There are NO changes in the patient's condition. Risks, benefits, and alternatives have been discussed and questions answered. Patient agrees to proceed with procedure.
--- NOTE | 2023-01-22 07:36 | PM.HPGS ---
History of Present Illness History of Present Illness Consent: Risks, benefits, and alternatives have been discussed and questions answered. Patient agrees to proceed with procedure. Chief complaint: Menorrhagia Narrative: Ariana Ku is a 42 year old female with worsening cycles over the past year. Patient had anemia down to hemoglobin 6. She was seen in the emergency room at that time. Patient was started on TXA. Patient presented as a new patient December 18, 2022. Repeat hemoglobin was 8.7. Pelvic ultrasound showed enlarged uterus without specific masses. It was recommended to undergo D&C hysteroscopy to further evaluate. Risks of infection, bleeding, perforation, and possible pathology are reviewed. Patient voices understanding and agrees to proceed. Review of Systems Review of Systems: not repeated day of surgery; patient states no changes in status PMFSH Past Medical History Medical History Iron deficiency anemia (normal spontaneous vaginal delivery) x4 Skin tumor history of excision age 4 benign Surgical History Surgical History History of tubal ligation Social History Social History Social History: Surrogate medical decision maker: Jose Borrego, significant other. Code status: Full code. Smoking packs per day: 0.5 Smoking cigarettes per day: 10.0 Years smoked: 4 Smoking pack-years: 2.00 Smoking status: Never smoker Tobacco type: cigarettes Second hand tobacco smoke exposure: Yes Additional smoking assessment comments: quit in 2016 Alcohol intake: never Substance use: never Substance use type: does not use Lack of Transportation: No Lack of Food: Never True Current Housing: I Have Housing Concerned About Future Housing: No Difficulty Paying Gas/Electric Bills: No Difficulty Paying for Meds: No Currently Unemployed: No Education: High School Diploma/GED Difficulty w/ Childcare or Family Care: No Living arrangements: with family Additional living arrangements comments: CHILDREN 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 Spiritual care concerns: No Meds Home Medications and Allergies Home Medications Medication Instructions Recorded Confirmed Type ferrous sulfate 325 mg (65 mg 325 mg PO DAILY #30 tabs 06/23/22 01/10/23 Rx iron) tablet (iron) vitamin B12 1,000 mcg-folic acid 1 sherly sublingual DAILY #30 ea 06/23/22 01/10/23 Rx 400 mcg sublingual lozenge Allergies Allergy/AdvReac Type Severity Reaction Status Date / Time No Known Allergies Allergy Mild Verified 01/10/23 14:54 Exam Const: General: healthy appearing and alert Orientation/consciousness: patient oriented x3 Resp: Effort & Inspection: normal respiratory effort GI: GI Palp: Yes Soft to palpation, No Tenderness to palpation present (GI) and No Palpable mass present : External Female Exam: normal external appearance Speculum Exam - Vagina: normal appearance of the vagina and normal vaginal discharge Speculum Exam - Cervix: normal appearance of the cervix Bimanual exam- vagina & uterus: consistency normal and enlarged (Approximately 14cm) Bimanual Exam- Adnexa, other: normal adnexae and No adnexal tenderness Neuro: General: patient oriented x3 Assessment and Plan Assessment and plan (1) Menorrhagia: Code(s): N92.0 - Excessive and frequent menstruation with regular cycle Status: Acute Assessment and Plan: Plan to proceed with D&C hysteroscopy (2) Anemia due to blood loss: Code(s): D50.0 - Iron deficiency anemia secondary to blood loss (chronic) Status: Acute
[2023-01-22 12:35] VITALS: BP 133/68; PULSE 69; RESP 20; TEMP 36.7; O2SAT 100
[2023-01-22] MEDS: ACETAMINOPHEN 500 MG TABLET 1000 MG PO (12:39)
[2023-01-22] MEDS: LACTATED RINGERS 1,000 ML 30 ML IV CONT (13:00)
--- NOTE | 2023-01-22 13:04 | P.PNAN_ITS ---
Anes - Initial Pre Proc Eval Procedure: Operation Date: 01/22/23 14:00 Proposed Procedures p Hysteroscopy Dilation and Curettage - Charlene Benson MD Date/Time: 01/22/23 13:04 Surgeon: Charlene Benson MD Pre Op Diagnosis: Menorrhagia Patient Data Age: 42 Gender: F Height: 1.63 m Weight: 81.65 kg Allergies Allergy/AdvReac Type Severity Reaction Status Date / Time No Known Allergies Allergy Mild Verified 01/22/23 12:38 Home Medications Medication Instructions Recorded Confirmed Type ferrous sulfate 325 mg (65 mg 325 mg PO DAILY #30 tabs 06/23/22 01/22/23 Rx iron) tablet (iron) vitamin B12 1,000 mcg-folic acid 1 sherly sublingual DAILY #30 ea 06/23/22 01/22/23 Rx 400 mcg sublingual lozenge Patient hx anesthesia problems: none Family hx anesthesia problems: none Results Review: All pre-operative results and documents have been reviewed as part of the pre- operative evaluation. [facility] Past Medical History Medical History Iron deficiency anemia (normal spontaneous vaginal delivery) x4 Skin tumor history of excision age 4 benign Surgical History Surgical History History of tubal ligation Social History Social History Social History: Surrogate medical decision maker: Jose Borrego, significant other. Code status: Full code. Smoking packs per day: 0.5 Smoking cigarettes per day: 10.0 Years smoked: 4 Smoking pack-years: 2.00 Smoking status: Never smoker Tobacco type: cigarettes Second hand tobacco smoke exposure: Yes Additional smoking assessment comments: quit in 2016 Alcohol intake: never Substance use: never Substance use type: does not use Lack of Transportation: No Lack of Food: Never True Current Housing: I Have Housing Concerned About Future Housing: No Difficulty Paying Gas/Electric Bills: No Difficulty Paying for Meds: No Currently Unemployed: No Education: High School Diploma/GED Difficulty w/ Childcare or Family Care: No Living arrangements: with family Additional living arrangements comments: CHILDREN 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 Spiritual care concerns: No Anes - Eval Final PreProcedure Day of Procedure 01/22/23 13:04 Patient weight: overweight Heart: regular rate and rhythm Lungs: clear to auscultation Airway: Mallampati scale class III Neurological: alert and oriented Last oral intake: >/= 8 hours ASA classification: II Emergent: no Anesthetic plan: proceed Anesthesia type and monitoring: general GIVS and standard monitoring Results Review: All pre-operative results and documents have been reviewed as part of the pre- operative evaluation. Informed Consent: The patient's anesthetic plan and its attendant risks and benefits were discussed with the patient/family/POA. Questions were solicited and answers provided to the satisfaction of the patient/family/POA.
[2023-01-22] MEDS: LIDOCAINE HCL 1% LOCAL INJ 20 ML VIAL 10 ML INFILTRATE (13:32)
--- NOTE | 2023-01-22 13:42 | P.OP_ITS ---
Procedure Note - Detailed Date of Procedure 01/22/23 Pre-op Diagnosis Menorrhagia Post-op Diagnosis Same Procedure Performed D&C hysteroscopy Surgeon Charlene Benson MD Anesthesia MAC Findings Uterus sounds to 9cm. Endometrium appears secretory. Appears to be several polyps anteriorly. Description of Procedure The patient is taken to operating room placed under anesthesia in the dorsal lithotomy position. She was prepped and draped in the usual sterile fashion. [place] speculum was placed in the vagina and the cervix grasped on the anterior lip with a tenaculum. The uterus is attempted to be sounded and internal cervical stenosis is encountered. The Hegar dilator was used to open the stenosis. The uterus was then sounded to 9cm. The diagnostic hysteroscope was placed with the above-stated findings. The Aveeta resection device is placed an d under direct visualization the thickened areas and suspected polyps are removed in their entirety. The hysteroscope was then removed and the 00 curette used to sharply curette the endometrium until a good uterine cry was noted in all areas. Instruments are removed. Sponge, needle, and instrument counts are correct per the OR staff. Patient is awakened from anesthesia and taken to recovery in stable condition. Estimated Blood Loss 5 Drains No Packing No Pathology Yes (Endometrial shavings and curettings) Complications No immediate complications Condition Stable Disposition PACU
[2023-01-22 13:45] VITALS: BP 112/67; PULSE 71; RESP 14
[2023-01-22 14:15] VITALS: BP 116/68; PULSE 63; RESP 14
[2023-01-22 14:45] VITALS: BP 119/65; PULSE 66; RESP 14
== END 2023-01-22 15:00 | disposition home or self-care (01) ==
PROVIDERS: Visit Provider Obstetrics & Gynecology Gynecology
PROC: 0U5B8ZZ Destruction of Endometrium, Via Natural or Artificial Opening Endoscopic (ICD-10-PCS; CPT 58563; principal; 2023-01-22 14:00)
DX: N92.0 Excessive and frequent menstruation with regular cycle (principal); N84.0 Polyp of corpus uteri; D50.0 Iron deficiency anemia secondary to blood loss (chronic); F17.210 Nicotine dependence, cigarettes, uncomplicated
CPT/HCPCS: 58558; 88305; A9270; J2250; J2704; J3010; J7120

== ENCOUNTER 2023-01-30 10:18 | Outpatient (CLI) | payer OTHER, SELFPAY ==
[2023-01-30 12:07] LABS: Iron 21 ug/dL (37-170)
[2023-01-30 12:16] LABS: Percent Iron Saturation 4 % (20-50)
[2023-01-30 12:47] LABS: Ferritin 3.93 ng/mL (6.24-137)
== END 2023-01-30 10:19 | disposition home or self-care (01) ==
LOC: ANHLAB 10:20
PROVIDERS: Visit Provider Obstetrics & Gynecology Gynecology
DX: D50.0 Iron deficiency anemia secondary to blood loss (chronic) (principal)
CPT/HCPCS: 36415; 82728; 83540; 83550

== ENCOUNTER 2023-05-09 12:40 | Outpatient (CLI) | payer OTHER, SELFPAY ==
[2023-05-09 13:17] LABS: Hematocrit 25.7 % (37.0-47.0); Hemoglobin 7.7 g/dL (12.0-15.0); Mean Corpuscular Hemoglobin 22.3 pg (26-34); Mean Corpuscular Volume 74.3 fl (80-100); Mean Platelet Volume 10.3 fl (7.4-10.4); Platelet Count Result 394 k/mm3 (150-375); Red Blood Count 3.46 M/mm3 (4.2-5.4); Red Cell Distribution Width 17.9 % (11.5-14.5); White Blood Count 7.9 K/mm3 (4.5-10.0)
== END 2023-05-09 12:41 | disposition home or self-care (01) ==
LOC: ANHLAB 12:42
PROVIDERS: Visit Provider Advanced Practice Midwife
DX: N92.0 Excessive and frequent menstruation with regular cycle (principal)
CPT/HCPCS: 36415; 82728; 85027

== ENCOUNTER 2023-06-01 12:39 | Outpatient (CLI) | payer OTHER, SELFPAY ==
[2023-06-01 12:49] LABS: Hematocrit 26.5 % (37.0-47.0)
== END 2023-06-01 12:40 | disposition home or self-care (01) ==
LOC: ANHLAB 12:41
PROVIDERS: Anesthesiology; Visit Provider Internal Medicine Hematology & Oncology
DX: Z01.818 Encounter for other preprocedural examination (principal); D50.0 Iron deficiency anemia secondary to blood loss (chronic)
CPT/HCPCS: 36415; 85014; 85018

== ENCOUNTER 2023-06-04 01:17 | Day surgery (SDC) | payer OTHER, SELFPAY ==
--- NOTE | 2023-05-28 15:00 | SUR.PREOP ---
Report to the Outpatient Waiting Room, entrance under the green pavilion located off [facility], at time 0900 on date 06/04/23. Planned Procedure Time: 1100. Time changes happen often and if your time is changed the preop area will call you the afternoon before. - You and your visitor will be asked to self-screen and do not enter if you have any COVID symptoms. - A mask is optional within the hospital at this time. Patients may have clear liquids (water, carbonated beverages, clear teas, apple juice) until 3 hours prior to surgery with a maximum of 20 ounces. - NO CLEAR LIQUIDS AFTER 0800, NO COFFEE ;) - No food from midnight until time of surgery - Infants may have breast milk until 4 hours before surgery, formula 6 hours prior to surgery. - Children will be allowed to drink immediately following surgery. If applicable, please bring a bottle or sippy cup to assist with drinking. Juice, water, soda, and popsicles are readily available. For infants on formula, please bring formula the day of surgery. Pacifiers are allowed. Take the following medications with a SIP of water the morning of surgery: ___N/A____ DO NOT STOP ANY OF YOUR OTHER PRESCRIPTION MEDICATIONS PRIOR TO SURGERY ?EXCEPT THE FOLLOWING Medications to discontinue per physician VITAMINS Date to take last dose 06/01/23 Please no make-up, nail belarusian, hairspray, perfume, deodorant, or body powder the day of surgery. No jewelry (including any body piercings) or valuables the day of surgery, leave them at home. Please take a shower or bath the night before, or the morning of, surgery with an antibacterial soap. Wear comfortable, loose fitting clothing. Children are encouraged to wear pajamas. - Jewelry must be removed prior to entering the operating room. Rings and piercings that are not removed may be cut off. - The hospital will not accept responsibility for valuables. - Please leave all valuables, including medications, at home the day of surgery. If you are going home after surgery, a licensed armored car guard and driver must drive you home. - NO public transportation without another adult if you receive anesthesia. - We recommend that an adult stay with you for 24 hours following discharge. - We also recommend that you do not drive, make important decision, drink alcoholic beverages, or take any drugs that were not prescribed by your health care provider for at least 24 hours after your discharge time. For Pediatric surgeries, we recommend two adults accompany the child home. Follow any additional instructions given to you from your surgeon. If you or anyone in your household have experienced Covid symptoms in the past week, please notify your surgeon or the nurse liaison at the phone number below for possible testing. Telephone instructions given to MARK ROBLES and asked if any additional questions and then verbalized understanding. Patient advised to call surgeon office or pre surgery nurse liaison [phone] if any additional questions.
[2023-05-28 15:10] VITALS: BMI 30.6
[2023-06-04] VITALS (9 sets, daily range): BP systolic 92–138; BP diastolic 56–74; PULSE 59–87; RESP 10–20; TEMP 36.3–37.2; O2SAT 98–100; BMI 29.6
--- NOTE | 2023-06-04 07:25 | WPDHPUPDATE1 ---
History and Physical Update Update Date/Time: 06/04/23 07:25 History and Physical has been reviewed, including an updated exam of the patient. There are NO changes in the patient's condition. Risks, benefits, and alternatives have been discussed and questions answered. Patient agrees to proceed with procedure.
--- NOTE | 2023-06-04 07:25 | PM.HPGS ---
History of Present Illness History of Present Illness Consent: Risks, benefits, and alternatives have been discussed and questions answered. Patient agrees to proceed with procedure. Chief complaint: menorrhagia, anemia Narrative: 43-year-old who presented as a new patient in November of 2022 with menorrhagia. Workup showed the patient to be severely anemic with hemoglobin of 7. D&C hysteroscopy was benign. The patient was given oral contraceptives with some success. The cycles decreased in frequency but continued to remain heavy. Anemia has not resolved most recent hemoglobin on 05/09 is 7.7. The patient has elected to proceed with an endometrial ablation. Risks of infection, bleeding, perforation, and success were discussed. Patient voices understanding and agrees to proceed. Review of Systems Review of Systems: not repeated day of surgery; patient states no changes in status PMFSH Past Medical History Medical History Iron deficiency anemia (normal spontaneous vaginal delivery) x4 Skin tumor history of excision age 4 benign Surgical History Surgical History (Updated 06/04/23 @ 07:28 by Charlene Benson MD) History of hysteroscopy 01/15 benign endometrial curettings History of tubal ligation Social History Social History Social History: Surrogate medical decision maker: Jose Borrego, significant other. Code status: Full code. Smoking packs per day: 0.5 Smoking cigarettes per day: 10.0 Years smoked: 4 Smoking pack-years: 2.00 Smoking status: Former smoker Tobacco type: cigarettes Second hand tobacco smoke exposure: Yes Additional smoking assessment comments: quit in 2016 Alcohol intake: never Substance use: never Substance use type: does not use Lack of Transportation: No Lack of Food: Never True Current Housing: I Have Housing Concerned About Future Housing: No Difficulty Paying Gas/Electric Bills: No Difficulty Paying for Meds: No Currently Unemployed: No Education: High School Diploma/GED Difficulty w/ Childcare or Family Care: No Living arrangements: with family Additional living arrangements comments: CHILDREN 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 Spiritual care concerns: No Meds Home Medications and Allergies Home Medications Medication Instructions Recorded Confirmed Type ferrous sulfate 325 mg (65 mg 325 mg PO DAILY #30 tabs 06/23/22 06/01/23 Rx iron) tablet (iron) vitamin B12 1,000 mcg-folic acid 1 sherly sublingual DAILY #30 ea 06/23/22 06/01/23 Rx 400 mcg sublingual lozenge Allergies Allergy/AdvReac Type Severity Reaction Status Date / Time No Known Allergies Allergy Mild Verified 06/01/23 13:03 Exam Const: General: healthy appearing and alert Orientation/consciousness: patient oriented x3 Resp: Effort & Inspection: normal respiratory effort GI: GI Palp: Yes Soft to palpation, No Tenderness to palpation present (GI) and No Palpable mass present : External Female Exam: normal external appearance Speculum Exam - Vagina: normal appearance of the vagina and normal vaginal discharge Speculum Exam - Cervix: normal appearance of the cervix Bimanual exam- vagina & uterus: consistency normal and enlarged ( 14 week size however only sounds to 9cm ) Bimanual Exam- Adnexa, other: normal adnexae and No adnexal tenderness Neuro: General: patient oriented x3 Assessment and Plan Assessment and plan (1) Menorrhagia: Code(s): N92.0 - Excessive and frequent menstruation with regular cycle Status: Acute Assessment and Plan: plan to proceed Annalise endometrial ablation (2) Anemia due to blood loss: Code(s): D50.0 - Iron deficiency anemia secondary to blood loss (chronic) Status: Acute
[2023-06-04] MEDS: LACTATED RINGERS 1,000 ML 30 ML IV CONT (09:25)
[2023-06-04] MEDS: ACETAMINOPHEN 500 MG TABLET 1000 MG PO (09:27)
--- NOTE | 2023-06-04 10:19 | P.OP_ITS ---
Procedure Note - Detailed Date of Procedure 06/04/23 Pre-op Diagnosis menorrhagia, anemia Post-op Diagnosis Same Procedure Performed Annalise endometrial ablation Surgeon Charlene Benson MD Anesthesia MAC and Local Findings the uterus sounds to 9cm and appears grossly Description of Procedure The patient is taken to the operating room and placed under anesthesia in the dorsal lithotomy position. She was prepped and draped in the usual sterile fashion. [place] speculum was placed in the vagina and the cervix grasped on the anterior lip with a tenaculum. The cervix is injected in each quadrant with 1% lidocaine. The uterus is sounded to 9cm. The diagnostic hysteroscope was placed and with no abnormalities noted it is removed. The cervix is serially dilated with Hegar to an 8. The Annalise endometrial ablation device is opened and placed. Cavity assessment passed on the 1st attempt. Treatment cycle lasted the full 2minutes. The Annalise device is removed and the hysteroscope replaced. Good ablation effect is noted. Estimated Blood Loss 5 Drains No Packing No Pathology None sent Complications No immediate complications Condition Stable Disposition PACU
[2023-06-04] MEDS: fentaNYL CITRATE INJ (*CRX) 100 MCG/2 ML VIAL 25 MCG IV PUSH (10:51)
[2023-06-04] MEDS: oxyCODONE HCL (*CRX) 5 MG TAB IR PO (11:46)
== END 2023-06-04 12:26 | disposition home or self-care (01) ==
PROVIDERS: Visit Provider Obstetrics & Gynecology Gynecology
PROC: 0U5B8ZZ Destruction of Endometrium, Via Natural or Artificial Opening Endoscopic (ICD-10-PCS; CPT 58563; principal; 2023-06-04 11:00)
DX: N92.0 Excessive and frequent menstruation with regular cycle (principal); D50.0 Iron deficiency anemia secondary to blood loss (chronic); Z87.891 Personal history of nicotine dependence
CPT/HCPCS: 58563; 36415; 85014; 85018; A9270; J1100; J2250; J2405; J2704; J3010; J7120

== ENCOUNTER 2023-06-30 10:47 | Outpatient (CLI) | payer OTHER, SELFPAY ==
[2023-06-30 11:02] LABS: Hematocrit 32.3 % (37.0-47.0); Hemoglobin 9.7 g/dL (12.0-15.0); Mean Corpuscular Volume 76.7 fl (80-100); Mean Platelet Volume 10.7 fl (7.4-10.4); Platelet Count Result 346 k/mm3 (150-375); Red Blood Count 4.21 M/mm3 (4.2-5.4); Red Cell Distribution Width 22.5 % (11.5-14.5); White Blood Count 10.7 K/mm3 (4.5-10.0)
== END 2023-06-30 10:48 | disposition home or self-care (01) ==
LOC: ANHLAB 10:49
PROVIDERS: Visit Provider Obstetrics & Gynecology Gynecology
DX: N92.0 Excessive and frequent menstruation with regular cycle (principal)
CPT/HCPCS: 36415; 85027

== ENCOUNTER 2023-08-09 08:47 | Outpatient (CLI) | payer OTHER, SELFPAY ==
--- NOTE | ~2023-08-09 | US_ITS ---
Pelvic ultrasound. Clinical History: Pelvic pain Technique: Realtime transabdominal and transvaginal scanning of the pelvis was performed. Color flow Doppler and Doppler spectral analysis were performed. Findings: The uterus is anteverted. The endometrial stripe has a thickness of 4 mm. No focal mass is identified. The right ovary measures 3.8 x 2.1 x 2.9 cm. No significant right ovarian or adnexal mass is seen. The left ovary measures 2.8 x 3.6 x 3.1 cm. No significant left ovarian or adnexal mass is seen. There is no evidence of free fluid in the cul de sac. Impression: Unremarkable pelvic ultrasound. Reviewed, dictated and finalized at location . Impression: Unremarkable pelvic ultrasound.
== END 2023-08-09 08:48 ==
LOC: MICIMG 08:48
PROVIDERS: PCP Advanced Practice Midwife; Visit Provider Advanced Practice Midwife
DX: N85.2 Hypertrophy of uterus (principal)
CPT/HCPCS: 76830; 76856

== ENCOUNTER 2023-08-09 10:37 | Outpatient (CLI) | payer OTHER, SELFPAY ==
[2023-08-09 12:57] LABS: Hematocrit 32.7 % (37.0-47.0); Mean Corpuscular HGB Conc 30.6 g/dl (32-36); Mean Corpuscular Hemoglobin 23.8 pg (26-34); Mean Corpuscular Volume 77.9 fl (80-100); Mean Platelet Volume 10.8 fl (7.4-10.4); Platelet Count Result 301 k/mm3 (150-375); Red Cell Distribution Width 21.9 % (11.5-14.5); White Blood Count 6.1 K/mm3 (4.5-10.0)
== END 2023-08-09 10:38 | disposition home or self-care (01) ==
LOC: ANHLAB 10:41
PROVIDERS: PCP Advanced Practice Midwife; Visit Provider Obstetrics & Gynecology Gynecology
DX: D50.9 Iron deficiency anemia, unspecified (principal)
CPT/HCPCS: 36415; 85027

== ENCOUNTER 2023-10-12 11:18 | Outpatient (CLI) | payer OTHER, SELFPAY ==
[2023-10-12 11:47] LABS: Hemoglobin 9.5 g/dL (12.0-15.0); Mean Corpuscular HGB Conc 31.7 g/dl (32-36); Mean Corpuscular Volume 78.9 fl (80-100); Mean Platelet Volume 10.6 fl (7.4-10.4); Platelet Count Result 313 k/mm3 (150-375); Red Cell Distribution Width 16.5 % (11.5-14.5); White Blood Count 7.1 K/mm3 (4.5-10.0)
== END 2023-10-12 11:19 | disposition home or self-care (01) ==
LOC: ANHLAB 11:20
PROVIDERS: PCP Advanced Practice Midwife; Visit Provider Obstetrics & Gynecology Gynecology
DX: D64.9 Anemia, unspecified (principal)
CPT/HCPCS: 36415; 85027

== ENCOUNTER 2024-12-15 00:57 | Day surgery (SDC) | payer OTHER, SELFPAY ==
--- OUTSIDE RECORDS SUMMARY | 2010-05-28 19:00 | XMS_ITS | Continuity of Care Document ---
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 Name Role Phone Unavailable Unavailable Unavailable Allergies, Adverse Reactions, Alerts Substance Reaction Status Criticality No Known Drug Allergies Other Active No I nformation Medications Medication Instructions Dosage Effective Dates (start - stop) Status Comments OVCON-35 0.4-0.035 TABS 1 DAILY - Active FERROUS SULFATE 325(65)MG TABS 1 QD - Active AMOXICILLIN 500MG CAPS 1 TID - No Longer Active TEMO-D 12 HOUR 120-60MG TAB 1 BID - No Longer Active CELEBREX 200MG CAPS 1 QD No Longer Active LEVAQUIN 500MG TABS 1 QD No Longer Active Advance Directives Directive Yes / No Effective Date File Name No Information Encounters Encounter Description Practice Location Reason(s) For Visit Diagnoses Date Provider Providers Copied on Encounter [facility], [address], [place], [place], [address], tel:[phone] [facility] No Information 6-201 1 No Information [facility], [address], [place], [place], [address], tel:[phone] [facility] ACUTE URI NOS May- 7-200 6 Conversion Doctor. [facility] [address]iah Recinos, [place], [address], . [facility], [address], [place], [place], [address], tel:[phone] [facility] BACKACHE NOSSCREEN MAL NEOP-CERVIX Dec-2 0-200 5 No Information [facility], [address], [place], [place], [address], tel:[phone] [facility] URIN TRACT INFECTION NOSLONG-TERM USE MEDS NEC 5 Jose Gandhi. [address], [address], [place], [place], [id number], [place]. tel:[phone] [facility], [address], [place], [place], [address], tel:[phone] [facility] No Information 5 No Information [facility], [address], [place], [place], [address], tel:[phone] [facility] DIZZINESS AND GIDDINESSANEMIA NOSOTH [facility] 4 Jose Gandhi. [address], [address], [place], [place], [address], . tel:[phone] Family History Family Member Type Diagnosis Age At Onset No Information Payers Payer name Insurance type Covered libertarian ID Authoriza tion(s) No Information Social History Type Description Quantity Date Captured Comments Sex Female Smoking Status No Information Chief Complaint And Reason For Visit No Information Reason For Referral Reason For Referral No Information History Of Present Illness Encounter Date Complaint History Of Prese nt Illness No Information Functional Status Date Functional Assessmen t No Information Instructions Date Instruction Additional Infor mation No Information Assessments Type Assessment Date No Information Patient Care Teams Name Effective Dates (start - stop) Status Members No Information
[2024-12-11 14:40] VITALS: BMI 30.8
--- NOTE | 2024-12-11 14:47 | PC.NURSE ---
[facility] has started construction of its new state of the art ER which will open Spring 2026. With this, we anticipate parking may be a challenge for some our surgical patients and families. Parking spaces are limited but are available for all Surgical, obstetrics, and ER patients sharing this lot. If you arrive and find you are having a hard time finding a parking space, please note that we understand the challenges, please drive around the hospital and park near Hospital Entrance 1. When you enter this entrance, you can ask a volunteer to direct or take you back to the surgical waiting area to check in. We appreciate everyone?s understanding of these expected challenges while we build for your future. Report to the Outpatient Waiting Room, entrance under the green pavilion located off [address], at time _0615_ on date _[phone]_. Planned Procedure Time: _0815_.? Time changes happen often and if your time is changed the preop area will call you the afternoon before. - You and your visitor will be asked to self-screen and do not enter if you have any COVID symptoms. Please call surgeon if you need to reschedule. - A mask is optional within the hospital at this time. Patients may have clear liquids (water, carbonated beverages, clear teas, apple juice) until 3 hours prior to surgery with a maximum of 20 ounces. - No food from midnight until time of surgery and no smoking, or chewing tobacco (or any form of nicotine). No chewing gum, candy or mints. Take only the following medications with a SIP of water on the morning of surgery: ___None DO NOT STOP ANY OF YOUR OTHER PRESCRIPTION MEDICATIONS PRIOR TO SURGERY EXCEPT THE FOLLOWING Hold all vitamins and supplements for 3 days per anesthesiologist. Stop now. Medications to discontinue per physician Date to take last dose____ Please no make-up, nail [place], hairspray, perfume, deodorant, or body powder the day of surgery.? No jewelry (including any body piercings) or valuables the day of surgery, leave them at home.? Please take a shower or bath the night before, or the morning of, surgery with an antibacterial soap.? Wear comfortable, loose fitting clothing.? - Jewelry must be removed prior to entering the operating room.? Rings and piercings that are not removed may be cut off. - The hospital will not accept responsibility for valuables.? - Please leave all valuables, including medications, at home the day of surgery. If you are going home after surgery, a licensed route driver must drive you home.? - NO public transportation without another adult if you receive anesthesia. - We recommend that an adult stay with you for 24 hours following discharge. - We also recommend that you do not drive, make important decision, drink alcoholic beverages, or take any drugs that were not prescribed by your health care provider for at least 24 hours after your discharge time. Follow any additional instructions given to you from your surgeon. Telephone instructions given to __Theresa__and asked if any additional questions and then verbalized understanding. Patient advised to call surgeon office or pre surgery nurse liaison [phone] if any additional questions.
--- OUTSIDE RECORDS SUMMARY | 2024-12-15 01:00 | XMS_ITS | Clinical Summary ---
Author Organization [facility] [place] [address] Address [address] [place] [address] Care Team Providers Care Hide Salter Name Role Phone Kaylan Hawkins MD Primary Care Provide r Charlene Benson MD Unavailable [phone] Allergies No known active allergies Medications FeroSuL 325 mg (65 mg iron) tablet Take 1 tablet (325 mg total) by mouth daily 06/23/2022 Active ferrous sulfate (Iron, ferrous sulfate,) 325 mg (65 mg of elemental iron) tablet daily 06/23/2022 Active miSOPROStoL (CYTOTEC) 200 mcg tablet 12/09/2024 Active Active Problems Problem Noted Date Diagnosed Date Encounter for wellness examination 07/22/2024 Assessment & Plan (07/23/2024 10:11 AM CDT): Ordered CBC, cmp, lipid, hgb a1c, HIV, hep c, hep b screening TSH w/ reflex to t4 Colonoscopy Pap smear Mammo: Diagnostic mammogram and ultrasound of left breast due in September and routine screening of right breast due next March Recommend staying up-to-date on vaccines F/u in 1 year for annual Orders: CBC with auto differential; Future Comprehensive metabolic panel; Future Hemoglobin A1c; Future Lipid panel; Future Thyroid Function [place]; Future Encounter for screening colonoscopy 07/31/2023 Class 1 obesity due to exces s calories without serious comorbidity with body mass index (BMI) of 30.0 to 30.9 in adult 07/23/2023 Assessment & Plan (07/23/2024 10:11 AM CDT): Iron deficiency anemia 07/21/2022 Assessment & Plan (07/23/2024 10:35 AM CDT): Orders: Hemoglobin and hematocrit; Future Assessment & Plan (07/21/2022 9:19 AM CDT): Clinically improving, continue oral supplement. Labs ordered, will follow. F/U with [facility], referral placed. Encounters Date Type Department Care Team Description 12/09/2024 10:45 AM CDT Lab [facility] - Lab Collection [address] [place] [id number] Iron deficiency anemia, unspecified iron deficiency anemia type 12/09/2024 10:30 AM CDT Lab [facility] Medicine Oncology Lab [address] [place] [phone] Arrived 12/09/2024 9:30 AM CDT Office Visit [facility] Medicine Hematology [address] [place] [phone] Cindy Marroquin NP Iron deficiency anemia, unspecified iron deficiency anemia type (Primary Dx) 12/09/2024 Orders Only [facility] Primary Care at [address] [phone] Kaylan Lockett MD Anemia, unspecified type (Primary Dx) 12/09/2024 Results Follow-Up [facility] Primary Care at [address] [phone] Kaylan Lockett MD Comprehensive metabolic panel, CBC with auto differential, Differential, auto, eGFR 12/05/2024 3:35 PM CDT Lab [address] [phone] Iron deficiency anemia, unspecified iron deficiency anemia type 11/10/2024 Orders Only [facility] Primary Care at [address] [place] [address] Kaylan Lockett MD Iron deficiency anemia, unspecified iron deficiency anemia type (Primary Dx) 11/10/[address] [place] [phone] Bianca Tripp 11/10/2024 Orders Only [facility] Primary Care at [address] [place] [phone] Kaylan Lockett MD Iron deficiency anemia, unspecified iron deficiency anemia type (Primary Dx) 11/05/2024 Telephone [facility] Primary Care at [address] [phone] Kaylan Lockett MD Test Results 10/31/2024 12:50 PM CDT Lab [address] Iron deficiency anemia, unspecified iron deficiency anemia type 10/28/2024 Orders Only [facility] Primary Care at [address] [phone] Kaylan Lockett MD Abnormal mammogram (Primary Dx) 10/27/2024 Telephone [facility] Primary Care at [address] [phone] Kaylan Lockett MD Medical Question/Miscellaneou s 10/22/2024 Telephone [facility] Primary Care at [address] [phone] Kaylan Lockett MD from Last 3 Months Immunizations Immunization Administration Dates Next Due Influenza, Unspecified 01/13/2024(Deferr ed: Patient Refused),01/12/2023(Deferred: Patient Refused),07/21/2022(Deferred: Patient Refused) Tdap 09/30/2019 Surgical History Surgery Date Site/Laterality Comments TUMOR REMOVAL TUBAL LIGATION 03/26/2006 - 04/25/2006 DILATION AND CURETTAGE OF UTERUS Medical History Medical History Date Comments No known health problems Anemia Family History Medical History Relation Name Comments No Known Problems Father No Known Problems Mother Relation Name Status Comments Father Mother Social History Tobacco Use Types Packs/Day Years Used Date Smoking Tobacco: Former Cigarettes 0.7 2 0 07/19/2012 - 07/17/2014 Passive Smoke Exposure: Past Smokeless Tobacco: Never Alcohol Use Standard Drinks/Week Comments Yes 0 (1 standard drink = 0.6 oz pur e alcohol) occasional AUDIT-C Answer Date Recorded Q1: How often do you have a drink containing alc ohol? Never 07/21/2022 Average Number of Drinks Not on file 023 Frequency of Binge Drinking Not on file 06/25 PHQ-2 Answer Date Recorded PHQ-2 Total Score (If total score is 3 or more points, staff should administer the PHQ-9) 0 07/23/2024 Comments No Sex and Gender Information Value Date Recorded Sex Assigned at Not on file Legal Sex Female 11:39 AM DEPUTY CLERK OF SUPERIOR [employer] Gender Identity Not on file Sexual Orientation Not on file Obstetrics History Para Term AB IAB SAB Ectopic Multiple Livin g Live Births 4 4 4 Date Outcome GA Total Labor Labor/2nd/3rd Weight Sex Type Anes PTL Rach A1 A5 Name Clin Term Term Term Term Last Filed Vital Signs Vital Sign Reading Time Taken Comments Blood Pressure 131/83 12/09/2024 9:22 AM CDT Pulse 75 12/09/2024 9:22 AM CDT Temperature 37 C (98.6 F) 12/09/2024 9:22 AM CDT Respiratory Rate 16 12/09/2024 9:22 AM CDT Oxygen Saturation 97% 12/09/2024 9:22 AM CDT Inhaled Oxygen Concentration - - Weight 84.1 kg (185 lb 8 oz) 12/09/2024 9:22 AM CDT Height 165.5 cm (5' 5.16) 12/09/2024 9:22 AM CD T Body Mass Index 30.72 12/09/2024 9:22 AM CDT Plan of Treatment Upcoming Encounters Date Type Department Care Team (Late st Contact Info) Description 03/25/2025 8:30 AM DEPUTY CLERK OF [address]IOR [address] Hospital Encounter [facility] Center [address] [place] [address] Dennis Rosas MD [address] [place] [address] [address] [place] [address] 03/25/2025 8:30 AM DEPUTY CLERK OF SUPERIOR COURT - 03/25/2025 9:00 AM DEPUTY CLERK OF SUPERIOR COURT Surgery [facility] [address] [place] [address] Dennis Rosas MD [address] [place] [address] [place] [address] COLONOSCOPY Scheduled Procedures Name Priority Associated Diagnoses Date/Ti me COLONOSCOPY Encounter for screening colonoscopy 03/25/2025 8:30 AM DEPUTY CLERK OF SUPERIOR [facility] Health Maintenance Due Date Last Done Comments Cervical Cancer Screening 1980 Colon Cancer Screening-Colonoscopy 1980 Covid-19 Vaccine (2024-2 6 season) 2024 04/30/2021, 04/02/2021 Influenza Vaccine (#1) 2024 Breast Cancer Screening-Mammogram 04/23/2025 04/23/2024, 01/16/2023 Depression Screening 07/23/2025 07/23/2024, 07/23/2023, 07/21/2022 Regular Well Visit/Exam 18-64 07/23/2025, 07/23/2023, 07/21/2022 DTaP/Tdap/Td Vaccine (2 - Td or Tdap) 09/29/2029 09/30/2019 Hepatitis B Screening Completed 07/23/2024 Hepatitis C Screening Completed 07/23/2024 , 07/21/2022 HPV Vaccines Aged Out No longer eligi ble based on patient's age to complete this topic Pneumococcal vaccine <65 Aged Out No longer eligible based on patient's age to complete this topic Procedures Procedure Name Priority Date/Time Associated Diagnosis Comments DIFFERENTIAL AUTO Routine 12/09/2024 10: 35 AM CDT Iron deficiency anemia, unspecified iron deficiency anemia type IRON PROFILE W/ IBC Routine 12/09/2024 1 0:35 AM CDT Iron deficiency anemia, unspecified iron deficiency anemia type FERRITIN Routine 12/09/2024 10:35 AM CDT Iron deficiency anemia, unspecified iron deficiency anemia type CBC WITH AUTO DIFFERENTIAL Routine 12/09/2024 10:35 AM CDT Iron deficiency anemia, unspecified iron deficiency anemia type RETICULOCYTES Routine 12/09/2024 10:35 AM CDT Iron deficiency anemia, unspecified iron deficiency anemia type COPPER, SERUM Routine 12/09/2024 10:35 AM CDT Iron deficiency anemia, unspecified iron deficiency anemia type FOLATE Routine 12/09/2024 10:35 AM CDT Iron deficiency anemia, unspecified iron deficiency anemia type VITAMIN B12 Routine 12/09/2024 10:35 AM CDT Iron deficiency anemia, unspecified iron deficiency anemia type ZINC Routine 12/09/2024 10:35 AM CDT Iron deficiency anemia, unspecified iron deficiency anemia type EGFR Routine 12/05/2024 3:37 PM CDT Iron deficiency anemia, unspecified iron deficiency anemia type DIFFERENTIAL AUTO Routine 12/05/2024 3:3 7 PM CDT Iron deficiency anemia, unspecified iron deficiency anemia type CBC WITH AUTO DIFFERENTIAL Routine 12/05/2024 3:37 PM CDT Iron deficiency anemia, unspecified iron deficiency anemia type COMPREHENSIVE METABOLIC PANEL Routine 12/05/2024 3:37 PM CDT Iron deficiency anemia, unspecified iron deficiency anemia type HEMOGLOBIN AND HEMATOCRIT Routine 10/31/2024 12:49 PM CDT Iron deficiency anemia, unspecified iron deficiency anemia type IRON PROFILE W/ IBC Routine 10/31/2024 1 2:49 PM CDT Iron deficiency anemia, unspecified iron deficiency anemia type HEPATITIS C ANTIBODY Routine 07/23/2024 10:46 AM CDT Need for hepatitis C screening test DIAGNOSTIC MAMMOGRAM BILATERAL W ABDOULAYE Schedule Routine, Read Routine (OP Routine) 04/23/2024 2:28 PM DEPUTY CLERK OF SUPERIOR COURT Abnormal mammogram from Last 3 Months or Most Recently Relevant to Health Maintenance Results * Differential, auto (12/09/2024 10:35 AM CDT) Neutrophil abs 3.08 1.50 - 6.50 K/cumm Comment:Testing performed by : [facility], [address] [place], [place] [phone] Lymphocyte abs 1.45 0.80 - 3.30 K/cumm [facility] Comment:Testing performed by : [facility], [address] [place] [address] Monocyte abs 0.61 0.20 - 0.80 K/cumm [facility] Comment:Testing performed by : [facility], [address] [place] [address] Eosinophil abs 0.10 0.00 - 0.50 K/cumm [facility] Comment:Testing performed by : [facility], [address] [place] [address] Basophil abs 0.07 0.00 - 0.10 K/cumm [facility] Comment:Testing performed by : [facility], [address] [place] [phone] Neutrophil pct 58.1 % [facility] Comment: Interpretive Data Percent cell count reference ranges are not reported, since discordance with absolute values may lead to misinterpretation of CBC data. Current Interpretive Data was last revised on 2017. Testing performed by: [facility], [address] [place] [phone] Lymphocyte pct 27.3 % [facility] Comment: Interpretive Data Percent cell count reference ranges are not reported, since discordance with absolute values may lead to misinterpretation of CBC data. Current Interpretive Data was last revised on 2017. Testing performed by: [facility], [address] [place] [phone] Monocyte pct 11.4 % [facility] Comment: Interpretive Data Percent cell count reference ranges are not reported, since discordance with absolute values may lead to misinterpretation of CBC data. Current Interpretive Data was last revised on 2017. Testing performed by: [facility], [address] [place] [phone] Eosinophil pct 2.0 % [facility] Comment: Interpretive Data Percent cell count reference ranges are not reported, since discordance with absolute values may lead to misinterpretation of CBC data. Current Interpretive Data was last revised on 2017. Testing performed by: [facility], [address] [place] [phone] Basophil pct 1.2 % [facility] Comment: Interpretive Data Percent cell count reference ranges are not reported, since discordance with absolute values may lead to misinterpretation of CBC data. Current Interpretive Data was last revised on 2017. Testing performed by: [facility], [address] [place] [phone] Blood 12/09/2024 10:3 5 AM CDT 12/09/2024 10:42 AM CDT us May [place] [employer] PROCESSOR LAB BLOOD ORDER FRANCISCO Final Result [facility] Department [place] [address] * (ABNORMAL) Iron profile w/ IBC (12/09/2024 10:35 AM CDT) Iron 10(L) 35 - 145 mcg/dL TIBC 426(H) 250 - 400 mcg/dL [facility] Transferrin saturation 2(L) 20 - 50 % [facility] Blood 12/09/2024 10:3 5 AM CDT 12/09/2024 10:47 AM CDT us May [place] [employer] PROCESSOR LAB BLOOD ORDER FRANCISCO Final Result [facility] [place] [address] * (ABNORMAL) CBC with auto differential (12/09/2024 10:35 AM CDT) WBC 5.31 3.80 - 9.90 K/cumm Comment:Testing performed by : [facility], [address] [place] [address] Hgb 8.5(L) 11.9 - 15.5 g/dL [facility] Comment:Testing performed by : [facility], [address] [place] [address] Hct 26.7(L) 35.6 - 45.5 % [facility] Comment:Testing performed by : [facility], [address] [place] [address] Plt 334 150 - 400 K/cumm [facility] Comment:Testing performed by : [facility], [address] [place] [address] MPV 8.5 6.8 - 10.4 fL [facility] Comment:Testing performed by : [facility], [address] [place] [address] RBC 3.64(L) 3.90 - 5.20 M/cumm [facility] Comment:Testing performed by : [facility], [address] [place] [address] MCV 73.4(L) 81.3 - 96.4 fL [facility] Comment:Testing performed by : [facility], [address] [place] [address] MCH 23.4(L) 27.1 - 33.3 pg [facility] Comment:Testing performed by : [facility], [address] [place] [address] MCHC 31.8(L) 32.3 - 35.7 g/dL [facility] Comment:Testing performed by : [facility], [address] [place] [address] RDW CV 17.6(H) 11.1 - 14.9 % [facility] Comment:Testing performed by : [facility], [address] [place] [phone] NRBC abs 0.00 0.00 - 0.01 K/cumm [facility] Comment:Testing performed by : [facility], [address] [place] [phone] Blood 12/09/2024 10:3 5 AM CDT 12/09/2024 10:[address] [facility] LAB BLOOD ORDER FRANCISCO Final Result Performing Organization Address [facility] Co de Phone Number [facility]STINA [facility] [place] [address] * Copper, serum (12/09/2024 10:35 AM CDT) Copper 145 77 - 206 mcg/dL [facility] Comment: ADDITIONAL INFORMATION This test was developed and its performance characteristics determined by [facility] in a manner consistent with CLIA requirements. This test has not been cleared or approved by the U.S. Food and Drug Administration. Test Performed by: [facility] [place] [address] Senior Software Engineer: Humberto Flores Ph.D.; CLIA# [id number] Blood 12/09/2024 10:3 5 AM CDT 12/09/2024 1:07 PM CDT [facility] LAB BLOOD ORDER FRANCISCO Final Result Performing Organization Address [facility] Co de Phone Number [facility] [place] [address] [facility] * Zinc (12/09/2024 10:35 AM CDT) Zinc 71 60 - 106 mcg/dL [facility] Comment: ADDITIONAL INFORMATION This test was developed and its performance characteristics determined by [facility] in a manner consistent with CLIA requirements. This test has not been cleared or approved by the U.S. Food and Drug Administration. Test Performed by: [facility] [address] [place] [address] Senior Software Engineer: Humberto Flores Ph.D.; CLIA# [id number] Blood 12/09/2024 10:3 5 AM CDT 12/09/2024 1:07 PM CDT May [place] CHE[employer] PROCESSOR LAB BLOOD ORDER FRANCISCO Final Result Performing Organization Address [facility] [place] [address] [facility] * Reticulocyte Count (12/09/2024 10:35 AM CDT) [facility] Retics, absolute 59 20 - 100 K/cumm Comment:Testing performed by : [facility], [address] [place] [phone] Retics 1.6 0.5 - 1.8 % [facility] Comment:Testing performed by : [facility], [address] [place] [phone] Blood 12/09/2024 10:3 5 AM CDT 12/09/2024 10:42 AM CDT [place] CHEESE PROCESSOR LAB BLOOD ORDER FRANCISCO Final Result Performing Organization Address [facility] Co de Phone Number [facility] [place] [address] * Folate (12/09/2024 10:35 AM CDT) [facility] Folic acid >20.0 >=5.0 ng/mL Blood 12/09/2024 10:3 5 AM CDT 12/09/2024 11:15 AM CDT us May [place] CHEESE PROCESSOR LAB BLOOD ORDER FRANCISCO Final Result Performing Organization Address [facility] de Phone Number [facility] [place] [address] * (ABNORMAL) Ferritin (12/09/2024 10:35 AM CDT) [facility] Ferritin 6(L) 13 - 150 ng/mL Blood 12/09/2024 10:3 5 AM CDT 12/09/2024 10:47 AM CDT us May [place] CHEESE PROCESSOR LAB BLOOD ORDER FRANCISCO Final Result Performing Organization Address [facility] de Phone Number [facility] Department [place] [address] * Vitamin B12 (12/09/2024 10:35 AM CDT) [facility] Vitamin B12 318 230 - 1,250 pg/mL Blood 12/09/2024 10:3 5 AM CDT 12/09/2024 11:15 AM CDT us May [place] CHEESE PROCESSOR LAB BLOOD ORDER FRANCISCO Final Result Performing Organization Address [facility] de Phone Number [facility] [place] [address] * eGFR (12/05/2024 3:37 PM CDT) [facility] eGFR >90 >=60 mL/min/1. 73 m2 Comment: Interpretive Data Reference Interval Normal >/= 90 mL/min/1.73m2 Mildly decreased* 60 - 89 mL/min/1.73m2 Mildly to moderately decreased 45 - 59 mL/min/1.73m2 Moderately to severely decreased 30 - 44 mL/min/1.73m2 Severely decreased 15 - 29 mL/min/1.73m2 Kidney Failure < 15 mL/min/1.73m2 *Relative to young adult level Estimated glomerular filtration rate is determined by the 2020 CKD-EPI equation recommended by the National Kidney Foundation (A Unifying Approach to GFR Estimation: Recommendations of the NKF-ASK Task Force on Reassessing the Inclusion of Race in Diagnosing Kidney Disease, JASN 2020). The CKD-EPI equation should not be used for patients with unstable renal function and has not been validated in children and those over 70. Current interpretive data was last reviewed 2021. Blood 12/05/2024 3:37 PM CDT 12/05/2024 3:40 PM CDT Kaylan Hawkins MD LAB BLOOD ORDERABLES Final Result [facility] ([place]) [facility] Department [place] [address] * (ABNORMAL) Differential, auto (12/05/2024 3:37 PM CDT) Neutrophil abs 6.00 1.50 - 6.50 K/cumm Imm gran abs 0.03 0.00 - 0.10 K/cumm [facility] ([place]) Lymphocyte abs 2.22 0.80 - 3.30 K/cumm [facility] ([place]) Monocyte abs 0.83(H) 0.20 - 0.80 K/cumm [facility] ([place]) Eosinophil abs 0.14 0.00 - 0.50 K/cumm [facility] ([place]) Basophil abs 0.08 0.00 - 0.10 K/cumm [facility] ([place]) Neutrophil pct 64.5 % [facility] ([place]) Comment: Interpretive Data Percent cell count reference ranges are not reported, since discordance with absolute values may lead to misinterpretation of CBC data. Current Interpretive Data was last revised on 2017. Imm gran pct 0.3 % [facility] ([place]) Comment: Interpretive Data Percent cell count reference ranges are not reported, since discordance with absolute values may lead to misinterpretation of CBC data. Current Interpretive Data was last revised on 2017. Lymphocyte pct 23.9 % [facility] ([place]) Comment: Interpretive Data Percent cell count reference ranges are not reported, since discordance with absolute values may lead to misinterpretation of CBC data. Current Interpretive Data was last revised on 2017. Monocyte pct 8.9 % [facility] ([place]) Comment: Interpretive Data Percent cell count reference ranges are not reported, since discordance with absolute values may lead to misinterpretation of CBC data. Current Interpretive Data was last revised on 2017. Eosinophil pct 1.5 % [facility] ([place]) Comment: Interpretive Data Percent cell count reference ranges are not reported, since discordance with absolute values may lead to misinterpretation of CBC data. Current Interpretive Data was last revised on 2017. Basophil pct 0.9 % [facility] ([place]) Comment: Interpretive Data Percent cell count reference ranges are not reported, since discordance with absolute values may lead to misinterpretation of CBC data. Current Interpretive Data was last revised on 2017. Blood 12/05/2024 3:37 PM CDT 12/05/2024 3:40 PM CDT Kaylan Hawkins MD LAB BLOOD ORDERABLES Final Result [facility] ([place]) [facility] Department [place] [address] * (ABNORMAL) CBC with auto differential (12/05/2024 3:37 PM CDT) WBC 9.30 3.80 - 9.90 K/cumm Hgb 7.9(L) 11.9 - 15.5 g/dL [facility] ([place]) Hct 25.3(L) 35.6 - 45.5 % [facility] ([place]) Plt 341 150 - 400 K/cumm [facility] ([place]) MPV 10.3 9.1 - 12.3 fL [facility] ([place]) RBC 3.40(L) 3.90 - 5.20 M/cumm [facility] ([place]) MCV 74.4(L) 81.3 - 96.4 fL [facility] ([place]) MCH 23.2(L) 27.1 - 33.3 pg [facility] ([place]) MCHC 31.2(L) 32.3 - 35.7 g/dL [facility] ([place]) RDW CV 17.0(H) 11.1 - 14.9 % [facility] ([place]) RDW SD 45.5 35.7 - 48.1 fL [facility] ([place]) NRBC abs 0.00 0.00 - 0.01 K/cumm [facility] ([place]) Blood 12/05/2024 3:37 PM CDT 12/05/2024 3:40 PM CDT us Kaylan Hawkins MD LAB BLOOD ORDERABLES Final Result [facility] ([place]) 1 [facility] Department [place] [address] * (ABNORMAL) Comprehensive metabolic panel (12/05/2024 3:37 PM CDT) Sodium 137 135 - 145 mmol/L [facility] ([place]) Potassium, pl 3.8 3.3 - 4.9 mmol/L [facility] Chloride 104 97 - 110 mmol/L [facility] CO2 21(L) 22 - 32 mmol/L [facility] ([place]) Anion gap 12 2 - 15 mmol/L [facility] BUN 9 6 - 25 mg/dL [facility] ([place]) Creatinine 0.69 0.60 - 1.10 mg/dL [facility] ([place]) Glucose 95 70 - 199 mg/dL [facility] Comment: Interpretive Data Fasting glucose >/= 126 mg/dl is diagnostic for diabetes. Fasting is defined as no caloric intake for at least 8 hours. Fasting glucose between 100 mg/dl to 125 mg/dl is diagnostic of prediabetes. In a patient with classic symptoms of hyperglycemia or hyperglycemic crisis, a random glucose >/= 200 mg/dl is diagnostic for diabetes. In the absence of unequivocal hyperglycemia, results should be confirmed by repeat testing. The classification and Diagnosis of Diabetes Diabetes Care 2021; 46: S19-S40. Current interpretive data was last revised 2022. Calcium 9.1 8.5 - 10.3 mg/dL [facility] ([place]) Bilirubin, total 0.9 0.1 - 1.2 mg/dL [facility] ([place]) Protein, pl 6.9 6.5 - 8.5 g/dL [facility] ([place]) Albumin 3.9 3.5 - 5.0 g/dL [facility] ([place]) Alk phos 77 40 - 130 Units/L [facility] ([place]) ALT 31 7 - 45 Units/L [facility]) AST 31 10 - 45 Units/L [facility] ([place]) Blood 12/05/2024 3:37 PM CDT 12/05/2024 3:40 PM CDT Kaylan Hawkins MD LAB BLOOD ORDERABLES Final Result [facility] ([place]) [facility] Department [place] [address] * (ABNORMAL) Iron profile w/ IBC (10/31/2024 12:49 PM CDT) Iron 16(L) 35 - 145 mcg/dL [facility] ([place]) TIBC 406(H) 250 - 400 mcg/dL [facility] ([place]) Transferrin saturation 4(L) 20 - 50 % [facility] ([place]) Blood 10/31/2024 12:4 9 PM CDT 10/31/2024 4:10 PM CDT Kaylan Hawkins MD LAB BLOOD ORDERABLES Final Result Performing Organization Address [facility]/ZIP Co de Phone Number [facility] ([place]) 1 [facility] [place] [address] * (ABNORMAL) Hemoglobin and hematocrit (10/31/2024 12:49 PM CDT) Hgb 8.8(L) 11.9 - 15.5 g/dL Hct 27.9(L) 35.6 - 45.5 % [facility] ([place]) Blood 10/31/2024 12:4 9 PM CDT 10/31/2024 4:10 PM CDT Kaylan Hawkins MD LAB BLOOD ORDERABLES Final Result Performing Organization Address [facility] Co de Phone Number [facility] ([place]) 1 [place] [address] * Hepatitis C antibody Blood (07/23/2024 10:46 AM CDT) Hep C Ab Nonreactive Nonreactive Comment: Interpretive Data Nonreactive: Antibodies to HCV not detected. Does NOT exclude the possibility of recent exposure to HCV. Equivocal: Equivocal for HCV antibodies. Supplemental molecular testing will be automatically performed to determine infection status in accordance with current CDC screening recommendations. Reactive: Positive for HCV antibodies. This may represent current or past HCV infection. Supplemental molecular testing will be automatically performed to determine current infection status in accordance with current CDC screening recommendations. Interpretive data was last revised on 2019. Testing performed by: [facility], [address] [place] [address]., [id number] Blood 07/23/2024 10:4 6 AM CDT 07/23/2024 3:19 PM CDT Kaylan Hawkins MD LAB MICROBIOLOGY - GE NERAL ORDERABLES Final Result Performing Organization Address City/[facility]/ZIP Co de Phone Number [facility] ([place]) 1 [facility] [place] [address] * Diagnostic Mammogram Bilateral W Abdoulaye (04/23/2024 2:28 PM DEPUTY CLERK OF SUPERIOR COURT) Anatomical Region Laterality Modality Breast Bilateral Mammography 04/23/2024 3:06 PM DEPUTY CLERK OF SUPERIOR COURT Impressions 04/23/2024 3:06 PM DEPUTY CLERK OF SUPERIOR COURT 1. Probably benign left breast 1 cm circumscribed hypoechoic mass with coarse calcifications at 7:00 (3 cm from nipple) has not suspiciously changed. 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 Follow-up left breast diagnostic mammogram and ultrasound in 6 months are recommended to assess for continued stability. 2. No mammographic evidence of malignancy in the right breast. Recommend screening mammography of the right breast in one year. The patient was notified of these findings and recommendations at the time the examination. OVERALL FINAL ASSESSMENT: BI-RADS Category 3: Probably Benign. Electronically signed by: Louis Lewis M.D. Narrative 04/23/2024 3:06 PM DEPUTY CLERK OF SUPERIOR COURT EXAMINATION: BILATERAL DIGITAL DIAGNOSTIC MAMMOGRAM INCLUDING CAD AND BILATERAL DIGITAL BREAST TOMOSYNTHESIS; LEFT BREAST SONOGRAM HISTORY: 44-year-old female presents for 6 month follow-up of a probably benign left breast mass and for annual right screening mammogram. COMPARISON: 10/17/2023, 01/12/2023, 01/16/2023 TECHNIQUE: Full field digital mammographic views of BOTH breasts were performed, including computer aided detection (CAD) and BILATERAL digital breast tomosynthesis (DBT). Directed ultrasound evaluation of the LEFT breast was performed. BREAST PARENCHYMAL COMPOSITION: There are scattered areas of fibroglandular density. MAMMOGRAM FINDINGS: The probably benign oval circumscribed 1 cm mass with coarse calcifications in the lower inner left breast, middle depth, has not suspiciously changed. There is no associated architectural distortion. There is no new suspicious finding in either breast on mammogram. SONOGRAM FINDINGS: Targeted ultrasound of the left breast at 7:00, 3 cm from nipple demonstrates a 1.0 x 0.5 x 0.6 cm oval circumscribed hypoechoic mass with microlobulated margins, parallel orientation, slight posterior acoustic enhancement, and no evidence of internal blood flow on color Doppler. This mass has not suspiciously changed in size or appearance since January 2023, at which time it measured 1.0 x 0.6 x 0.7 cm. Kaylan Hawkins MD IMG MAMMO PROCEDURES Final Result from Last 3 Months or Most Recently Relevant to Health Maintenance Insurance Care Teams Hide Salter Relationship Specialty Start Date End Date Kaylan Hawkins MD [address] [place] [address] [address] [place] [address] PCP - General Family Medicine 07/23/24 Charlene Benson MD [address] [place] [address] Referring Physician Gynecology 07/23/24
--- OUTSIDE RECORDS SUMMARY | 2024-12-15 01:00 | XMS_ITS | Encounter Summary ---
Author Organization [facility] Healthcare Address [address] [place] [address] Care Team Providers Care Window And Door Installer Name Role Phone Kaylan Hawkins MD Primary Care Provide r Charlene Benson MD Unavailable [phone] Reason for Visit * Reason Onset Date Comments Test Results 12/09/2024 Encounter Details Date Type Department Care Team (Late st Contact Info) Description 12/09/2024 Results Follow-Up [facility] Primary Care at [address] [place] [address] Kaylan Hawkins MD [address] [place] [address] [address] [place] [address] Comprehensive metabolic panel, CBC with auto differential, Differential, auto, eGFR Social History Tobacco Use Types Packs/Day Years [...] on file Legal Sex Female 11:39 AM [employer]EL COAT [employer] Gender Identity Not on file Sexual Orientation Not on file documented as of this encounter Miscellaneous Notes * Result Encounter Note - Radha Izquierdo - 12/09/2024 11:12 AM CDT Order placed. Pt should be contacted to schedule. * Telephone Encounter - Margie Vargas MA - 12/09/2024 10:00 AM CDT Ariana has been informed. documented in this encounter Plan of Treatment Upcoming Encounters Date Type Department Care Team (Late st Contact Info) Description 03/25/2025 8:30 AM GEL COAT SPR[employer]ER Hospital Encounter [address] [address] Dennis Rosas MD [address] [place] [address] [address] [place] [address] 03/25/2025 8:30 AM GEL COAT SPRAYER - 03/25/2025 9:00 AM GEL COAT SPRAYER Surgery [address] [id number] Ladd MD [address] [place] [address] [address] [place] [address] COLONOSCOPY Scheduled Procedures Name Priority Associated Diagnoses Date/Ti me COLONOSCOPY Encounter for screening colonoscopy 03/25/2025 8:30 AM GEL COAT SPRAYER documented as of this encounter Visit Diagnoses Not on filedocumented in this encounter Care Teams Window And Door Installer Relationship Specialty Start Date End Date Kaylan Hawkins MD [address] [facility] [address] [place] [address] PCP - General Family Medicine 07/23/24 Charlene Benson MD [address] [place] [address] Referring Physician Gynecology 07/23/24 documented as of this encounter
[2024-12-15 07:15] VITALS: BP 133/86; PULSE 73; RESP 16; TEMP 36.8; O2SAT 100
[2024-12-15] MEDS: ACETAMINOPHEN 500 MG TABLET 1000 MG PO (07:15)
[2024-12-15] MEDS: LACTATED RINGERS 1,000 ML 30 ML IV CONT (07:15)
--- NOTE | 2024-12-15 07:15 | P.HP_ITS ---
History of Present Illness History of Present Illness Consent: Risks, benefits, and alternatives have been discussed and questions answered. Patient agrees to proceed with procedure. Chief complaint: Menorrhagia Narrative: Ariana Ku is a 44 year old female with prolonged and heavy cycles. Patient is anemic last hemoglobin the 8.9. It was recommended to undergo D&C hysteroscopy for further evaluation. Risks infection, bleeding, perforation, and inability to to the cavity are reviewed. Possible pathology was discussed. Due to her prior history of ablation she was given Cytotec to take for 1 week prior to surgery. Patient voices understanding agrees to proceed. Review of Systems Review of Systems: not repeated day of surgery; patient states no changes in status PMFSH Past Medical History Medical History Skin tumor history of excision age 4 benign (normal spontaneous vaginal delivery) x4 Iron deficiency anemia Surgical History Surgical History (Updated 12/15/24 @ 07:17 by Charlene Benson MD) History of endometrial ablation History of hysteroscopy 01/15 benign endometrial curettings History of tubal ligation Social History Social History Social History: Surrogate medical decision maker: Jose Borrego, significant other. Code status: Full code. Smoking packs per day: 0.5 Smoking cigarettes per day: 10.0 Years smoked: 2 Smoking pack-years: 1.00 Smoking status: Former smoker Tobacco type: cigarettes Second hand tobacco smoke exposure: Yes Smoking end date: 12/11/13 Additional smoking assessment comments: quit in 2016 Alcohol intake: never Substance use: never Substance use type: does not use Lack of Transportation: No Lack of Food: Never True Current Housing: I Have Housing Concerned About Future Housing: No Difficulty Paying Gas/Electric Bills: No Difficulty Paying for Meds: No Currently Unemployed: No Education: High School Diploma/GED Difficulty w/ Childcare or Family Care: No Living arrangements: with family Additional living arrangements comments: CHILDREN 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 Spiritual care concerns: No Meds Home Medications and Allergies Home Medications ?Medication ?Instructions ?Recorded ?Confirmed ?Type ferrous sulfate 325 mg (65 mg 325 mg PO DAILY #30 tabs 06/23/22 12/11/24 Rx iron) tablet (iron) vitamin B12 1,000 mcg-folic acid 1 sherly sublingual DULCE Y #30 ea 06/23/22 12/11/24 Rx 400 mcg sublingual lozenge Allergies Allergy/AdvReac Type Severity Reaction Status Date / Time No Known Allergies Allergy Mild Verified 12/11/24 14:40 Exam Const: General: healthy appearing and alert Orientation/consciousness: patient oriented x3 Resp: Effort & Inspection: normal respiratory effort : External Female Exam: normal external appearance Speculum Exam - Vagina: normal appearance of the vagina and normal vaginal discharge Speculum Exam - Cervix: normal appearance of the cervix Bimanual exam- vagina & uterus: uterine size normal and consistency normal Bimanual Exam- Adnexa, other: normal adnexae and No adnexal tenderness Neuro: General: patient oriented x3 Assessment and Plan Assessment and plan (1) Menorrhagia: Code(s): N92.0 - Excessive and frequent menstruation with regular cycle Status: Acute Assessment and Plan: Plan to proceed with D&C hysteroscopy
--- NOTE | 2024-12-15 07:15 | WPDHPUPDATE1 ---
History and Physical Update Update Date/Time: 12/15/24 07:15 History and Physical has been reviewed, including an updated exam of the patient. There are NO changes in the patient's condition. Risks, benefits, and alternatives have been discussed and questions answered. Patient agrees to proceed with procedure.
--- NOTE | 2024-12-15 07:18 | SUR.PREOP ---
DR CREWS HAD AN ORDER FOR H&H TODAY. PT WAS ABLE TO SHOW HER RESULTS FROM [facility] 12/05 H&H 7.9 & 25.3 12/09 H&H 8.5 & 26.7
--- NOTE | 2024-12-15 07:22 | WPDANESEPPF ---
Anes - Initial Pre Proc Eval Procedure: Operation Date: 12/15/24 08:15 Proposed Procedures p Hysteroscopy Dilation and Curettage - Charlene Benson MD Date/Time: 12/15/24 07:22 Surgeon: Charlene Benson MD Pre Op Diagnosis: Menorrhagia Patient Data Age: 44 Gender: F Height: 1.65 m Weight: 84 kg Allergies Allergy/AdvReac Type Severity Reaction Status Date / Time No Known Allergies Allergy Mild Verified 12/11/24 14:40 Home Medications ?Medication ?Instructions ?Recorded ?Confirmed ?Type ferrous sulfate 325 mg (65 mg 325 mg PO DAILY #30 tabs 06/23/22 12/11/24 Rx iron) tablet (iron) vitamin B12 1,000 mcg-folic acid 1 sherly sublingual DAILY #30 ea 06/23/22 12/11/24 Rx 400 mcg sublingual lozenge Patient hx anesthesia problems: none Family hx anesthesia problems: none Results Review: All pre-operative results and documents have been reviewed as part of the pre-operative evaluation. REPLACED BY [facility] Past Medical History Medical History Skin tumor history of excision age 4 benign (normal spontaneous vaginal delivery) x4 Iron deficiency anemia Surgical History Surgical History History of endometrial ablation History of hysteroscopy 01/15 benign endometrial curettings History of tubal ligation Social History Social History Social History: Surrogate medical decision maker: Jose Borrego, significant other. Code status: Full code. Smoking packs per day: 0.5 Smoking cigarettes per day: 10.0 Years smoked: 2 Smoking pack-years: 1.00 Smoking status: Former smoker Tobacco type: cigarettes Second hand tobacco smoke exposure: Yes Smoking end date: 12/11/13 Additional smoking assessment comments: quit in 2016 Alcohol intake: never Substance use: never Substance use type: does not use Lack of Transportation: No Lack of Food: Never True Current Housing: I Have Housing Concerned About Future Housing: No Difficulty Paying Gas/Electric Bills: No Difficulty Paying for Meds: No Currently Unemployed: No Education: High School Diploma/GED Difficulty w/ Childcare or Family Care: No Living arrangements: with family Additional living arrangements comments: CHILDREN 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 Spiritual care concerns: No Anes - Eval Final PreProcedure Day of Procedure 12/15/24 07:22 Patient weight: obese Heart: regular rate and rhythm Lungs: clear to auscultation Airway: Mallampati scale class II Neurological: alert and oriented Last oral intake: >/= 8 hours ASA classification: II Emergent: no Anesthetic plan: proceed Anesthesia type and monitoring: general GIVS and standard monitoring Results Review: All pre-operative results and documents have been reviewed as part of the pre-operative evaluation. Informed Consent: The patient's anesthetic plan and its attendant risks and benefits were discussed with the patient/family/POA. Questions were solicited and answers provided to the satisfaction of the patient/family/POA.
[2024-12-15 08:07] LABS: BEDSIDEPREGUCG Negative (Negative)
[2024-12-15] MEDS: KETOROLAC 30 MG/ML VIAL (*BKC) IV PUSH (08:13)
[2024-12-15 08:20] VITALS: BP 106/51; PULSE 65; RESP 16; O2SAT 98
--- NOTE | 2024-12-15 08:23 | P.OP_ITS ---
Procedure Note - Detailed Date of Procedure 12/15/24 Pre-op Diagnosis Menorrhagia Post-op Diagnosis Same Procedure Performed D&C hysteroscopy Surgeon Charlene Bensno MD Anesthesia MAC Findings The cervix is stenotic. The uterus sounds to 8cm. There was some scarring but otherwise a normal appearing endometrium consistent with prior ablation. No discrete lesions are noted. Description of Procedure The patient was taken to the operating room and placed under anesthesia in the dorsal lithotomy position. She was prepped and draped in the usual sterile fashion. [place] speculum was placed in the vagina and the cervix grasped on the anterior lip with a tenaculum. The sound would not pass. The small dilator was used and the cervix was dilated to 4 [place]. The sound was then able to pass and the uterus sounds to 8cm. The diagnostic hysteroscope was placed and with no abnormalities noted the hysteroscope was removed. The sharp curette is used to curette the endometrium until a good uterine cry was noted in all areas. All instruments were then removed. Sponge, needle, and instrument counts are correct per the OR staff. The patient was awakened from anesthesia and taken to recovery in stable condition. Estimated Blood Loss 5 Drains No Packing No Pathology Yes (Endometrial curettings) Complications No immediate complications Condition Stable Disposition PACU
--- NOTE | 2024-12-15 08:24 | S_PTH ---
PATIENT: Ariana Ku LOC: [facility] U#:[id number] AGE/SX: 44/F ROOM: RE12/15/[address]: Charlene Benson MD : 1980 BED: DIS: 12/15/2024 SPEC #: [id number] RECD: 12/15/24 10:08 STATUS: JOANNA RE #: [id number] GUILLERMO: 12/15/24 08:[address]: Charlene Benson DEPT: [facility] Surgical RECD BY: Melony Rodrigues ENTERED: 12/15/24 10:09 SP TYPE: Surgical OTHR DR: Kaylan HawkinsMD Tissues: A - Endometrial Curettings Procedures: Hematoxylin and Eosin Stain Gross and Microscopic Level 4
[2024-12-15 08:45] VITALS: BP 118/67; PULSE 62; RESP 16; O2SAT 96
[2024-12-15 09:10] VITALS: BP 111/64; PULSE 59; RESP 16
== END 2024-12-15 09:19 | disposition home or self-care (01) ==
PROVIDERS: Anesthesiology; PCP Family Medicine; Visit Provider Obstetrics & Gynecology Gynecology
PROC: 0U5B8ZZ Destruction of Endometrium, Via Natural or Artificial Opening Endoscopic (ICD-10-PCS; CPT 58563; principal; 2024-12-15 08:15)
DX: N92.0 Excessive and frequent menstruation with regular cycle (principal); N85.9 Noninflammatory disorder of uterus, unspecified; Z87.891 Personal history of nicotine dependence; E66.9 Obesity, unspecified; Z68.30 Body mass index [BMI] 30.0-30.9, adult
CPT/HCPCS: 58558; 88305; A9270; J1885; J2003; J2250; J2405; J2704; J3010; J7120